=== PATIENT | male | born 1950 | race Hispanic/Latino ===

== ENCOUNTER 2017-09-05 14:38 | Emergency (ER) | payer MEDICARE ==
--- NOTE | 2017-09-05 14:50 | C.PDOC ---
History Of Present Illness 67 y/o male brought to ED by EMS after being found in an acute ETOH intoxication at [facility] prior to arrival. At ED patient is ambulatory and has steady gait. Patient has no physical complaints at this time. Time Seen by Provider: 09/05/17 14:43 History Per: Patient History/Exam Limitations: no limitations Onset/Duration Of Symptoms: Mins Suicide/Self Injury Attempted (Context): None Modifying Factor(s): Alcohol Past Medical History Reviewed: Historical Data, Nursing Documentation, Vital Signs Vital Signs: Last Vital Signs Temp 98.3 F 09/05/17 14:50 Pulse 84 09/05/17 16:03 Resp 18 09/05/17 16:03 BP 135/82 09/05/17 16:03 Pulse Ox 98 09/05/17 16:03 - Medical History PMH: No Chronic Diseases Surgical History: No Surg Hx Family History: States: No Known Family Hx Review Of Systems Constitutional: Negative for: Fever, Chills Cardiovascular: Negative for: Chest Pain Gastrointestinal: Negative for: Nausea, Vomiting, Abdominal Pain Skin: Negative for: Rash Psych: Negative for: Anxiety, Suicidal ideation Physical Exam - Physical Exam Appears: Non-toxic, No Acute Distress, Other (Cooperative, mild to moderate etoh intoxicated) Skin: Normal Color, Warm, Dry, No Rash Head: Atraumatic, Normacephalic Eye(s): bilateral: Normal Inspection Oral Mucosa: Moist Neck: Normal ROM, Supple Cardiovascular: Rhythm Regular Respiratory: Normal Breath Sounds, No Rales, No Rhonchi, No Wheezing Gastrointestinal/Abdominal: Soft, No Tenderness, No Guarding, No Rebound Extremity: Normal ROM, Capillary Refill (<2 seconds) Neurological/Psych: Oriented x3, Normal Speech Gait: Steady ED Course And Treatment O2 Sat by Pulse Oximetry: 100 (RA) Pulse Ox Interpretation: Normal Disposition - Disposition Disposition: HOME/ ROUTINE Disposition Time: 19:00 Condition: IMPROVED Forms: [facility] (Jamaican) - Clinical Impression Clinical Impression: Alcoholism /alcohol abuse - Scribe Statement The provider has reviewed the documentation as recorded by the Carmineibcarmelo Mckeon All medical record entries made by the Scribe were at my direction and personally dictated by me. I have reviewed the chart and agree that the record accurately reflects my personal performance of the history, physical exam, medical decision making, and the department course for this patient. I have also personally directed, reviewed, and agree with the discharge instructions and disposition.
[2017-09-05 14:55] VITALS: TEMP 98.3
[2017-09-05 16:04] VITALS: BP 135/82; PULSE 84; RESP 18
[2017-10-03 16:14] VITALS: O2SAT 100
== END 2017-09-05 16:10 | disposition home or self-care (01) ==
LOC: C.ER 14:38
DX: F10.20 Alcohol dependence, uncomplicated (principal); Y90.9 Presence of alcohol in blood, level not specified

== ENCOUNTER 2017-09-05 17:14 | Inpatient (IN) | payer MEDICARE ==
--- NOTE | 2017-09-05 18:05 | C.PDOC ---
History Of Present Illness 67 year old is brought to the ED via EMS after being found in the street drinking. Patient was seen in the ED earlier today by Dr. Valera who evaluated him and d/c at 16:00. Patient reports he left the hospital went to have a drink was sitting on the curb and was picked up by ambulance and brought back to the ED. Patient presents with a abrasion to the back of his head and states he does not remember how it happened. Patient denies SI/HI, hallucinations and any physical complaints. Time Seen by Provider: 09/05/17 17:27 Chief Complaint (Nursing): Substance Abuse History Per: Patient History/Exam Limitations: no limitations Onset/Duration Of Symptoms: Hrs Current Symptoms Are (Timing): Gone Suicide/Self Injury Attempted (Context): None Modifying Factor(s): Other (Heroin) Associated Symptoms: denies: Depression, Suicidal Thoughts, Suicidal Plan Involuntary Hold By: None Recent travel outside of the [place]: No Additional History Per: Patient Past Medical History Reviewed: Historical Data, Nursing Documentation, Vital Signs Vital Signs: Last Vital Signs Temp 98 F 09/05/17 23:13 Pulse 96 H 09/05/17 23:13 Resp 16 09/05/17 23:13 BP 120/76 09/05/17 23:13 Pulse Ox 98 09/05/17 23:13 - Medical History PMH: HTN Other PMH: Hepatocellular carcinoma Surgical History: No Surg Hx Other Surgeries: Liver Transplant Family History: States: Unknown Family Hx - Social History Hx Alcohol Use: Yes Hx Substance Use: No Review Of Systems Constitutional: Negative for: Fever, Chills Cardiovascular: Negative for: Chest Pain, Palpitations Respiratory: Negative for: Cough, Shortness of Breath Gastrointestinal: Negative for: Nausea, Vomiting, Abdominal Pain Skin: Negative for: Rash Neurological: Negative for: Weakness, Numbness Psych: Negative for: Depression, Suicidal ideation Physical Exam - Physical Exam Appears: Non-toxic, No Acute Distress, Other (Intoxicated, speaking in full sentences) Skin: Normal Color, Warm, Dry Head: Normacephalic, Abrasion (Occipital ) Nose: No Discharge Oral Mucosa: Moist Neck: Normal ROM, Supple Chest: Symmetrical Cardiovascular: Rhythm Regular, No Murmur Respiratory: Normal Breath Sounds, No Rales, No Rhonchi, No Wheezing Gastrointestinal/Abdominal: Soft, No Tenderness, No Distention, No Rebound Extremity: Normal ROM, No Pedal Edema, No Calf Tenderness, No Swelling Neurological/Psych: Oriented x3, Normal Speech, Normal Cognition Gait: Steady ED Course And Treatment - Laboratory Results Result Diagrams: 09/05/17 21:13 09/05/17 21:13 Lab Interpretation: Abnormal (ETOH 175) ECG: Interpreted By Me ECG Rhythm: Sinus Tachycardia (with Q waves V1-2), ST/T Changes (with possible inferior ischemia) ECG Interpretation: Abnormal O2 Sat by Pulse Oximetry: 97 (On RA) Pulse Ox Interpretation: Normal - CT Scan/US CT Head Other Rad Studies (CT/US): Interpreted By Me, Read By Radiologist, Radiology Report Reviewed CT/US Interpretation: EXAM: CT Head Without Intravenous Contrast. EXAM DATE/ TIME: 09/05/2017 6:08 PM. CLINICAL HISTORY: 67 years old, male; Injury or trauma; Fall; Initial encounter; Abrasion and concussion / head injury;. Consciousness not specified; Head, generalized. TECHNIQUE: Axial computed tomography images of the head/brain without intravenous contrast. All CT scans at. this facility use one or more dose reduction techniques, viz.: automated exposure control; ma/kV. adjustment per patient size (including targeted exams where dose is matched to indication; i.e. head);. or iterative reconstruction technique. Coronal and sagittal reformatted images were created and reviewed. COMPARISON: There are no prior studies for comparison. FINDINGS: Brain: There is dilatation of sulci gyri and ventricles. There is no midline shift. There is decreased. attenuation in periventricular white matter. There is extensive subarachnoid hemorrhage. There is a. very small right frontal subdural hemorrhage. There are no focal masses. There are no focal. hemorrhages. Elizondo- white differentiation is visualized. Ventricles: See above. Bones: Cranial vault is intact. Soft tissues: There is left posterior parietal scalp bruising. Sinuses: There is no acute sinusitis. Ears and mastoids: Left middle ear and mastoid are unremarkable. There is debris in the right. external auditory canal. There is partial opacification of right middle ear and mastoid. Orbits: Orbital contents are unremarkable. IMPRESSION: Extensive subarachnoid hemorrhage with very small right frontal subdural bleed;. atrophy and small vessel disease; left posterior parietal scalp bruising, no fracture; right middle ear. and mastoid disease. Reevaluation Time: 22:31 Reassessment Condition: Unchanged (Patient stable and c/o mild headache.) - Physician Consult Information Time Consulting Physician Contacted: 22:30 Outcome Of Conversation: Case discussed with Dr Anand and Dr Han, Dr Feldman and Dr Jackson. Patient to be admitted to the ICU for observation and CT angio of the head ordered. Disposition - Disposition Disposition: HOSPITALIZED Disposition Time: 22:32 Condition: SERIOUS - Clinical Impression Clinical Impression: Subarachnoid hemorrhage - Scribe Statement The provider has reviewed the documentation as recorded by the Scribe Antonio Jay All medical record entries made by the Scribe were at my direction and personally dictated by me. I have reviewed the chart and agree that the record accurately reflects my personal performance of the history, physical exam, medical decision making, and the department course for this patient. I have also personally directed, reviewed, and agree with the discharge instructions and disposition.
--- NOTE | 2017-09-05 20:52 | CT ---
EXAM: CT Head Without Intravenous Contrast EXAM DATE/TIME: 09/05/2017 6:08 PM CLINICAL HISTORY: 67 years old, male; Injury or trauma; Fall; Initial encounter; Abrasion and concussion / head injury; Consciousness not specified; Head, generalized TECHNIQUE: Axial computed tomography images of the head/brain without intravenous contrast. All CT scans at this facility use one or more dose reduction techniques, viz.: automated exposure control; ma/kV adjustment per patient size (including targeted exams where dose is matched to indication; i.e. head); or iterative reconstruction technique. Coronal and sagittal reformatted images were created and reviewed. COMPARISON: There are no prior studies for comparison. FINDINGS: Brain: There is dilatation of sulci gyri and ventricles. There is no midline shift. There is decreased attenuation in periventricular white matter. There is extensive subarachnoid hemorrhage. There is a very small right frontal subdural hemorrhage. There are no focal masses. There are no focal hemorrhages. Elizondo-white differentiation is visualized. Ventricles: See above Bones: Cranial vault is intact. Soft tissues: There is left posterior parietal scalp bruising Sinuses: There is no acute sinusitis. Ears and mastoids: Left middle ear and mastoid are unremarkable. There is debris in the right external auditory canal. There is partial opacification of right middle ear and mastoid. Orbits: Orbital contents are unremarkable. IMPRESSION: Extensive subarachnoid hemorrhage with very small right frontal subdural bleed; atrophy and small vessel disease; left posterior parietal scalp bruising, no fracture; right middle ear and mastoid disease
[2017-09-05 21:17] LABS: BASO # 0.1 K/uL (0.0-0.2); BASO % 0.7 % (0.0-2.0); EOS % 0.4 % (0.0-4.0); HEMATOCRIT 43.8 % (35.0-51.0); LYMPH # 1.2 K/uL (1.0-4.3); LYMPH % 12.4 % (20.0-40.0); MEAN CELL VOLUME 98.2 fL (80.0-94.0); MEAN CORPUSCULAR HEMOGLOBIN 33.4 pg (27.0-31.0); MEAN PLATELET VOLUME 7.8 fL (7.2-11.7); MONO # 0.6 K/uL (0.0-0.8); RED CELL DISTRIBUTION WIDTH 12.6 % (11.5-14.5); WHITE BLOOD COUNT 9.3 K/uL (4.8-10.8)
[2017-09-05 21:29] LABS: ALB/GLOB RATIO 1.3 (1.0-2.1); ALCOHOL SERUM 175 mg/dl (0-10); ALKALINE PHOSPHATASE 74 U/L (38-126); ALT/SGPT 50 U/L (21-72); AST/SGOT 33 U/L (17-59); BILIRUBIN,TOTAL 0.6 mg/dL (0.2-1.3); BLOOD UREA NITROGEN 16 mg/dL (9-20); CALCIUM 8.6 mg/dl (8.6-10.4); CARBON DIOXIDE 25 mmol/L (22-30); CHLORIDE 101 mmol/L (98-107); GFR AFRICAN-AMERICAN > 60; GLUCOSE,RANDOM 151 mg/dL (75-110); POTASSIUM 3.7 mmol/L (3.6-5.2); SODIUM 139 mmol/L (132-148); TOTAL PROTEIN 7.2 g/dL (6.3-8.3)
[2017-09-05] MEDS ORDERED: Fosphenytoin 1,000 MG in Sodium Chloride 0.9% 50 ML IV STA (22:01)
[2017-09-05] MEDS ORDERED: Labetalol 25mg/5ml Syringe IVP STA (22:01)
[2017-09-05] MEDS ORDERED: Labetalol 25mg/5ml Syringe ONE (22:13)
[2017-09-05] MEDS ORDERED: Iodixanol 320 MG/ML 100 ML BOTTLE IV ONE (23:09)
--- NOTE | 2017-09-05 23:18 | CP.PCM.HP ---
History of Present Illness - History of Present Illness History of Present Illness: Chief complaint: Patient was brought in by the ambulance, he was found on the side of the curb by the bystander. History: 67-year-old male with a history of hypertension diabetes and high cholesterol. Patient has a history of liver transplant. Earlier today the patient was found in the street drinking, and EMS brought him to the emergency room. In the emergency room patient was evaluated initially, and he was discharged. Again he went to bar and he was drinking alcohol, he does not remember anything after that, he was found not responding underside of the curb and he was brought into the emergency room. Slowly his started responding, his alcohol level was found to be high, and he was able to be get discharged. At the time emergency room doctor noted that he had some bleeding in the back of the head, and urgent CAT scan of the brain was done, showing evidence of bleeding, and he needed hospitalization. When I examined the patient he was more alert and awake, he denied any headache , no nausea or vomiting, no fall or injury, he doesn't remember anything. Currently he is able to stand up, but he has unsteady gait. He denies any visual symptoms. Currently he is not taking any antiplatelets. Past medical history: Hypertension, diabetes, high cholesterol, history of liver transplant Allergies: No known drug allergies Personal history: Patient was not drinking for sometime, he again he started. He also smokes daily. No drugs Surgical history liver transplant in 2005 Family history noncontributory Review of system: Currently patient does have a corresponding, no headache, denies any nausea or vomiting, no chest pain or shortness of breath, denies any GI symptoms Some bleeding in the back of the head noted Unsteady gait noted Vital signs reviewed No neck vein distention noted Chest good air entry bilaterally, no wheezing or rales noted CVS regular heart sound, no murmur noted Abdomen soft, nontender. Extremities no pedal edema [employer] alert awake oriented -3, no functional neurological deficit Patient's labs reviewed in Nonspecific the CT of the head without contrast showing evidence of subarachnoid hemorrhage. CT of the head with contrast showing no evidence of aneurysm Assessment and recommendation: 67-year-old male with a history of diabetes, hypertension, hypercholesterolemia , history of liver transplant. Most likely now admitted with subarachnoid hemorrhages secondary to most likely traumatic. Alcoholism. Glucose monitoring neurological status. Neurologic, neurosurgical evaluation. Spoke to the neurologist. Progressive mitral Present on Admission - Present on Admission Any Indicators Present on Admission: No History of DVT/PE: No History of Uncontrolled Diabetes: No Urinary Catheter: No Decubitus Ulcer Present: No Past Patient History - Past Social History Smoking Status: Former Smoker - CARDIAC Hx Hypertension: Yes - ENDOCRINE/METABOLIC Hx Diabetes Mellitus Type 2: Yes - PSYCHIATRIC Hx Substance Use: No - SURGICAL HISTORY Hx Liver Transplant: Yes (2005) Meds Allergies/Adverse Reactions: Allergies Allergy/AdvReac Type Severity Reaction Status Date / Time No Known Allergies Allergy Verified 09/05/17 14:55 Results - Vital Signs Recent Vital Signs: Last Vital Signs Temp 98 F 09/05/17 23:13 Pulse 96 H 09/05/17 23:13 Resp 16 09/05/17 23:13 BP 120/76 09/05/17 23:13 Pulse Ox 98 09/05/17 23:13 - Labs Result Diagrams: 09/06/17 06:16 09/06/17 06:16 Labs: Laboratory Results - last 24 hr 09/05/17 09/05/17 09/05/17 17:39 21:13 21:13 WBC 9.3 RBC 4.46 Hgb 14.9 Hct 43.8 MCV 98.2 H MCH 33.4 H MCHC 34.0 RDW 12.6 Plt Count 190 MPV 7.8 Neut % (Auto) 80.5 H Lymph % (Auto) 12.4 L [place] % (Auto) 6.0 Eos % (Auto) 0.4 Baso % (Auto) 0.7 Neut # 7.5 H Lymph # 1.2 [place] # 0.6 Eos # 0.0 Baso # 0.1 PT 11.1 INR 1.0 APTT 27 Sodium Potassium Chloride Carbon Dioxide Anion Gap BUN Creatinine Est GFR ( Amer) Est GFR (Non-Af Amer) POC Glucose (mg/dL) 139 H Random Glucose Calcium Total Bilirubin AST ALT Alkaline Phosphatase Total Protein Albumin Globulin Albumin/Globulin Ratio Urine Opiates Screen Urine Methadone Screen Ur Barbiturates Screen Ur Phencyclidine Scrn Ur Amphetamines Screen U Benzodiazepines Scrn U Oth Cocaine Metabols U Cannabinoids Screen Alcohol, Quantitative Blood Type Antibody Screen 09/05/17 09/05/17 09/05/17 21:13 21:22 21:22 WBC RBC Hgb Hct MCV MCH MCHC RDW Plt Count MPV Neut % (Auto) Lymph % (Auto) [place] % (Auto) Eos % (Auto) Baso % (Auto) Neut # Lymph # [place] # Eos # Baso # PT INR APTT Sodium 139 Potassium 3.7 Chloride 101 Carbon Dioxide 25 Anion Gap 17 BUN 16 Creatinine 0.9 Est GFR ( Amer) > 60 Est GFR (Non-Af Amer) > 60 POC Glucose (mg/dL) Random Glucose 151 H Calcium 8.6 Total Bilirubin 0.6 AST 33 ALT 50 Alkaline Phosphatase 74 Total Protein 7.2 Albumin 4.0 Globulin 3.1 Albumin/Globulin Ratio 1.3 Urine Opiates Screen Negative Urine Methadone Screen Negative Ur Barbiturates Screen Negative Ur Phencyclidine Scrn Negative Ur Amphetamines Screen Negative U Benzodiazepines Scrn Negative U Oth Cocaine Metabols Negative U Cannabinoids Screen Negative Alcohol, Quantitative 175 H Blood Type O POSITIVE Antibody Screen Negative
--- NOTE | 2017-09-06 00:36 | CT ---
EXAM: CT Angiography Head With Intravenous Contrast EXAM DATE/TIME: 09/05/2017 10:33 PM CLINICAL HISTORY: 67 years old, male; Signs and symptoms; Other: R/O bleed; Patient HX: 09-05-17; Additional info: Subarachnoid hemorrhage TECHNIQUE: Axial computed tomographic angiography images of the head with intravenous contrast using CT angiography protocol. All CT scans at this facility use one or more dose reduction techniques, viz.: automated exposure control; ma/kV adjustment per patient size (including targeted exams where dose is matched to indication; i.e. head); or iterative reconstruction technique. MIP reconstructed images were created and reviewed. Coronal and sagittal reformatted images were created and reviewed. CONTRAST: 100 mL of [id number] administered intravenously. COMPARISON: CT - HEAD W/O CONTRAST 2017-09-05 19:03 FINDINGS: Noncontrast CT performed earlier the same day revealed extensive subarachnoid hemorrhage most notably in the suprasellar cistern as well as possible trace amount of right frontal subdural blood. Small calcifications are present within the cavernous carotid arteries bilaterally without significant stenosis or occlusion. The visualized portions of the vertebral arteries are normal bilaterally. The basilar artery is normal. The anterior, middle, posterior cerebral arteries are patent. The [place] of [place] is normal without evidence of anerysm. Atrophy and chronic small vessel ischemic disease. Please note no 3-D reconstructions are provided. IMPRESSION: No acute findings.
[2017-09-06] MEDS ORDERED: Fosphenytoin 100 MG in Dextrose 5% In Water 50 ML IV SCH (04:00)
[2017-09-06] MEDS: Fosphenytoin 100 mg/2 ml Inj IV SCH ×3 (04:35→21:47)
[2017-09-06 06:21] LABS: BASO % 0.5 % (0.0-2.0); EOS % 0.1 % (0.0-4.0); HEMATOCRIT 39.3 % (35.0-51.0); LYMPH # 0.9 K/uL (1.0-4.3); LYMPH % 10.9 % (20.0-40.0); MEAN CELL VOLUME 97.5 fL (80.0-94.0); MEAN CORPUSCULAR HEMOGLOBIN 33.1 pg (27.0-31.0); MEAN PLATELET VOLUME 8.6 fL (7.2-11.7); MONO # 0.7 K/uL (0.0-0.8); MONO % 8.8 % (0.0-10.0); NRBC % 0.1 % (0.0-2.0); RED CELL DISTRIBUTION WIDTH 12.5 % (11.5-14.5); WHITE BLOOD COUNT 8.4 K/uL (4.8-10.8)
[2017-09-06 06:41] LABS: ALB/GLOB RATIO 1.4 (1.0-2.1); ALKALINE PHOSPHATASE 69 U/L (38-126); ALT/SGPT 45 U/L (21-72); AST/SGOT 28 U/L (17-59); BLOOD UREA NITROGEN 19 mg/dL (9-20); CALCIUM 8.4 mg/dl (8.6-10.4); CARBON DIOXIDE 22 mmol/L (22-30); CHLORIDE 100 mmol/L (98-107); GFR AFRICAN-AMERICAN > 60; GLUCOSE,RANDOM 175 mg/dL (75-110); MAGNESIUM 1.1 mg/dL (1.6-2.3); POTASSIUM 3.5 mmol/L (3.6-5.2); SODIUM 137 mmol/L (132-148); TOTAL PROTEIN 6.6 g/dL (6.3-8.3)
--- NOTE | 2017-09-06 07:08 | CP.PCM.CON ---
History of Present Illness - History of Present Illness History of Present Illness: Chief complaint: Patient was brought in by the ambulance, he was found on the side of the curb by the bystander. History: 67-year-old male with a history of hypertension diabetes and high cholesterol. Patient has a history of liver transplant. Earlier today the patient was found in the street drinking, and EMS brought him to the emergency room. In the emergency room patient was evaluated initially, and he was discharged. Again he went to bar and he was drinking alcohol, he does not remember anything after that, he was found not responding underside of the curb and he was brought into the emergency room. Slowly his started responding, his alcohol level was found to be high, and he was able to be get discharged. At the time emergency room doctor noted that he had some bleeding in the back of the head, and urgent CAT scan of the brain was done, showing evidence of bleeding, and he needed hospitalization. When I examined the patient he was more alert and awake, he denied any headache , no nausea or vomiting, no fall or injury, he doesn't remember anything. Currently he is able to stand up, but he has unsteady gait. He denies any visual symptoms. Currently he is not taking any antiplatelets. Past medical history: Hypertension, diabetes, high cholesterol, history of liver transplant Allergies: No known drug allergies Personal history: Patient was not drinking for sometime, he again he started. He also smokes daily. No drugs Surgical history liver transplant in 2005 Family history noncontributory Review of system: Currently patient does have a corresponding, no headache, denies any nausea or vomiting, no chest pain or shortness of breath, denies any GI symptoms Some bleeding in the back of the head noted Unsteady gait noted Vital signs reviewed No neck vein distention noted Chest good air entry bilaterally, no wheezing or rales noted CVS regular heart sound, no murmur noted Abdomen soft, nontender. Extremities no pedal edema [employer] alert awake oriented -3, no functional neurological deficit Patient's labs reviewed in Nonspecific the CT of the head without contrast showing evidence of subarachnoid hemorrhage. CT of the head with contrast showing no evidence of aneurysm Assessment and recommendation: 67-year-old male with a history of diabetes, hypertension, hypercholesterolemia , history of liver transplant. Most likely now admitted with subarachnoid hemorrhages secondary to most likely traumatic. Alcoholism. Glucose monitoring neurological status. Neurologic, neurosurgical evaluation. Spoke to the neurologist. Progressive mitral Past Patient History - Past Medical History & Family History Past Medical History?: Yes - Past Social History Smoking Status: Former Smoker - CARDIAC Hx Hypertension: Yes - PULMONARY Hx Respiratory Disorders: No Hx Asthma: No Hx Bronchitis: No Hx Chronic Obstructive Pulmonary Disease (COPD): No Hx Emphysema: No Hx Lung Cancer: No Hx Pneumonia: No Hx Pulmonary Edema: No Hx Pulmonary Embolism: No Hx Respiratory Aspiration: No Hx Respiratory Tract Infection: No Hx Sleep Apnea: No Hx Tuberculosis: No - NEUROLOGICAL Hx Neurological Disorder: Yes Hx Alzheimer's Disease: No HX Cerebrovascular Accident: No Hx Dementia: No Hx Dizziness: No Hx Meningitis: No Hx Migraine: No Hx Multiple Sclerosis: No Hx Paralysis: No Hx Parkinson's Disease: No Hx Seizures: No Hx Syncope: No Hx Transient Ischemic Attacks (TIA): No Hx Vertigo: No - HEENT Hx HEENT Problems: No Hx Blind: No Hx Cataracts: No Hx Deafness: No Hx Difficulty Chewing: No Hx Epistaxis: No Hx Glaucoma: No Hx Macular Degeneration: No Hx Sinusitis: No - RENAL Hx Chronic Kidney Disease: No Hx Dialysis: No Hx Neurogenic Bladder: No Hx Pyelonephritis: No Hx Renal (Kidney) Cancer: No Hx Renal Failure: No - ENDOCRINE/METABOLIC Hx Diabetes Mellitus Type 2: Yes - HEMATOLOGICAL/ONCOLOGICAL Hx Blood Disorders: No Hx Shingles: Yes - INTEGUMENTARY Hx Dermatological Problems: No - MUSCULOSKELETAL/RHEUMATOLOGICAL Hx Musculoskeletal Disorders: Yes Hx Falls: Yes - GASTROINTESTINAL Hx Gastrointestinal Disorders: Yes Hx Liver Failure: Yes - GENITOURINARY/GYNECOLOGICAL Hx Genitourinary Disorders: No - PSYCHIATRIC Hx Substance Use: No - SURGICAL HISTORY Hx Liver Transplant: Yes (2005) - ANESTHESIA Hx Anesthesia: Yes Hx Anesthesia Reactions: No Hx Malignant Hyperthermia: No Has any member of the family had a problem w/ anesthesia?: No Meds Allergies/Adverse Reactions: Allergies Allergy/AdvReac Type Severity Reaction Status Date / Time No Known Allergies Allergy Verified 09/05/17 14:55 - Medications Medications: Current Medications Fosphenytoin Sodium (Cerebyx) 100 mg IV Q8H [facility] Last Admin: 09/06/17 04:35 Dose: 100 mg Sodium Chloride (Sodium Chloride 0.9%) 1,000 mls @ 100 mls/hr IV .Q10H [facility] Metformin HCl (Glucophage) 500 mg PO BID [facility] Metoprolol Succinate (Toprol Xl) 50 mg PO BID [facility] Multivitamins (Hexavitamin) 1 tab PO DAILY [facility] Pantoprazole Sodium (Protonix Ec Tab) 40 mg PO DAILY [facility] Rosuvastatin Calcium (Crestor) 2.5 mg PO HS PRICE Sitagliptin Phosphate (Januvia) 100 mg PO DAILY [facility] Tacrolimus (Prograf Cap) 1 mg PO DAILY [facility] Thiamine HCl (Vitamin B1 Tab) 100 mg PO DAILY [facility] Results - Vital Signs Recent Vital Signs: Last Vital Signs Temp 98.1 F 09/06/17 04:00 Pulse 83 09/06/17 01:46 Resp 14 09/06/17 01:46 BP 91/48 L 09/06/17 01:46 Pulse Ox 95 09/06/17 01:46 - Labs Result Diagrams: 09/06/17 06:16 09/06/17 06:16 Labs: Laboratory Results - last 24 hr 09/05/17 09/05/17 09/05/17 17:39 21:13 21:13 WBC 9.3 RBC 4.46 Hgb 14.9 Hct 43.8 MCV 98.2 H MCH 33.4 H MCHC 34.0 RDW 12.6 Plt Count 190 MPV 7.8 Neut % (Auto) 80.5 H Lymph % (Auto) 12.4 L [place] % (Auto) 6.0 Eos % (Auto) 0.4 Baso % (Auto) 0.7 Neut # 7.5 H Lymph # 1.2 [place] # 0.6 Eos # 0.0 Baso # 0.1 PT 11.1 INR 1.0 APTT 27 Sodium Potassium Chloride Carbon Dioxide Anion Gap BUN Creatinine Est GFR ( Amer) Est GFR (Non-Af Amer) POC Glucose (mg/dL) 139 H Random Glucose Calcium Magnesium Total Bilirubin AST ALT Alkaline Phosphatase Total Protein Albumin Globulin Albumin/Globulin Ratio Urine Opiates Screen Urine Methadone Screen Ur Barbiturates Screen Ur Phencyclidine Scrn Ur Amphetamines Screen U Benzodiazepines Scrn U Oth Cocaine Metabols U Cannabinoids Screen Alcohol, Quantitative Blood Type Antibody Screen 09/05/17 09/05/17 09/05/17 21:13 21:22 21:22 WBC RBC Hgb Hct MCV MCH MCHC RDW Plt Count MPV Neut % (Auto) Lymph % (Auto) [place] % (Auto) Eos % (Auto) Baso % (Auto) Neut # Lymph # [place] # Eos # Baso # PT INR APTT Sodium 139 Potassium 3.7 Chloride 101 Carbon Dioxide 25 Anion Gap 17 BUN 16 Creatinine 0.9 Est GFR ( Amer) > 60 Est GFR (Non-Af Amer) > 60 POC Glucose (mg/dL) Random Glucose 151 H Calcium 8.6 Magnesium Total Bilirubin 0.6 AST 33 ALT 50 Alkaline Phosphatase 74 Total Protein 7.2 Albumin 4.0 Globulin 3.1 Albumin/Globulin Ratio 1.3 Urine Opiates Screen Negative Urine Methadone Screen Negative Ur Barbiturates Screen Negative Ur Phencyclidine Scrn Negative Ur Amphetamines Screen Negative U Benzodiazepines Scrn Negative U Oth Cocaine Metabols Negative U Cannabinoids Screen Negative Alcohol, Quantitative 175 H Blood Type O POSITIVE Antibody Screen Negative 09/06/17 09/06/17 09/06/17 06:16 06:16 06:16 WBC 8.4 RBC 4.03 L Hgb 13.4 Hct 39.3 MCV 97.5 H MCH 33.1 H MCHC 34.0 RDW 12.5 Plt Count 156 MPV 8.6 Neut % (Auto) 79.7 H Lymph % (Auto) 10.9 L [place] % (Auto) 8.8 Eos % (Auto) 0.1 Baso % (Auto) 0.5 Neut # 6.7 Lymph # 0.9 L [place] # 0.7 Eos # 0.0 Baso # 0.0 PT 11.6 INR 1.0 APTT 19 L D Sodium 137 Potassium 3.5 L Chloride 100 Carbon Dioxide 22 Anion Gap 18 BUN 19 Creatinine 1.1 Est GFR ( Amer) > 60 Est GFR (Non-Af Amer) > 60 POC Glucose (mg/dL) Random Glucose 175 H Calcium 8.4 L Magnesium 1.1 L Total Bilirubin 1.0 AST 28 ALT 45 Alkaline Phosphatase 69 Total Protein 6.6 Albumin 3.8 Globulin 2.8 Albumin/Globulin Ratio 1.4 Urine Opiates Screen Urine Methadone Screen Ur Barbiturates Screen Ur Phencyclidine Scrn Ur Amphetamines Screen U Benzodiazepines Scrn U Oth Cocaine Metabols U Cannabinoids Screen Alcohol, Quantitative Blood Type Antibody Screen
--- NOTE | 2017-09-06 07:36 | CP.PCM.CON ---
History of Present Illness - History of Present Illness History of Present Illness: CONSULT DICTATED POST TRAUMATIC SAH NO ANEURYSM PER CTA ASYMPTOMATIC HYDRATION KEEP MAP >90-100 HEAD END ELEVATION GI FOLLOW UP CEREBEX Sz PROPYLAXIS MRI EEG NO NEUROSURGICAL INTERVENTION IS NEEDED NIMODIPINE D/C DUE TO HIS LOW MAP AND POST TRAUMATIC SAH Past Patient History - Past Medical History & Family History Past Medical History?: Yes - Past Social History Smoking Status: Former Smoker - CARDIAC Hx Hypertension: Yes - PULMONARY Hx Respiratory Disorders: No Hx Asthma: No Hx Bronchitis: No Hx Chronic Obstructive Pulmonary Disease (COPD): No Hx Emphysema: No Hx Lung Cancer: No Hx Pneumonia: No Hx Pulmonary Edema: No Hx Pulmonary Embolism: No Hx Respiratory Aspiration: No Hx Respiratory Tract Infection: No Hx Sleep Apnea: No Hx Tuberculosis: No - NEUROLOGICAL Hx Neurological Disorder: Yes Hx Alzheimer's Disease: No HX Cerebrovascular Accident: No Hx Dementia: No Hx Dizziness: No Hx Meningitis: No Hx Migraine: No Hx Multiple Sclerosis: No Hx Paralysis: No Hx Parkinson's Disease: No Hx Seizures: No Hx Syncope: No Hx Transient Ischemic Attacks (TIA): No Hx Vertigo: No - HEENT Hx HEENT Problems: No Hx Blind: No Hx Cataracts: No Hx Deafness: No Hx Difficulty Chewing: No Hx Epistaxis: No Hx Glaucoma: No Hx Macular Degeneration: No Hx Sinusitis: No - RENAL Hx Chronic Kidney Disease: No Hx Dialysis: No Hx Neurogenic Bladder: No Hx Pyelonephritis: No Hx Renal (Kidney) Cancer: No Hx Renal Failure: No - ENDOCRINE/METABOLIC Hx Diabetes Mellitus Type 2: Yes - HEMATOLOGICAL/ONCOLOGICAL Hx Blood Disorders: No Hx Shingles: Yes - INTEGUMENTARY Hx Dermatological Problems: No - MUSCULOSKELETAL/RHEUMATOLOGICAL Hx Musculoskeletal Disorders: Yes Hx Falls: Yes - GASTROINTESTINAL Hx Gastrointestinal Disorders: Yes Hx Liver Failure: Yes - GENITOURINARY/GYNECOLOGICAL Hx Genitourinary Disorders: No - PSYCHIATRIC Hx Substance Use: No - SURGICAL HISTORY Hx Liver Transplant: Yes (2005) - ANESTHESIA Hx Anesthesia: Yes Hx Anesthesia Reactions: No Hx Malignant Hyperthermia: No Has any member of the family had a problem w/ anesthesia?: No Meds Allergies/Adverse Reactions: Allergies Allergy/AdvReac Type Severity Reaction Status Date / Time No Known Allergies Allergy Verified 09/05/17 14:55 - Medications Medications: Current Medications Fosphenytoin Sodium (Cerebyx) 100 mg IV Q8H [facility] Last Admin: 09/06/17 04:35 Dose: 100 mg Sodium Chloride (Sodium Chloride 0.9%) 1,000 mls @ 100 mls/hr IV .Q10H [facility] Metformin HCl (Glucophage) 500 mg PO BID [facility] Metoprolol Succinate (Toprol Xl) 50 mg PO BID [facility] Multivitamins (Hexavitamin) 1 tab PO DAILY [facility] Pantoprazole Sodium (Protonix Ec Tab) 40 mg PO DAILY [facility] Rosuvastatin Calcium (Crestor) 2.5 mg PO HS [facility] Sitagliptin Phosphate (Januvia) 100 mg PO DAILY [facility] Tacrolimus (Prograf Cap) 1 mg PO DAILY [facility] Thiamine HCl (Vitamin B1 Tab) 100 mg PO DAILY [facility] Results - Vital Signs Recent Vital Signs: Last Vital Signs Temp 98.1 F 09/06/17 04:00 Pulse 83 09/06/17 01:46 Resp 14 09/06/17 01:46 BP 91/48 L 09/06/17 01:46 Pulse Ox 95 09/06/17 01:46 - Labs Result Diagrams: 09/06/17 06:16 09/06/17 06:16 Labs: Laboratory Results - last 24 hr 09/05/17 09/05/17 09/05/17 17:39 21:13 21:13 WBC 9.3 RBC 4.46 Hgb 14.9 Hct 43.8 MCV 98.2 H MCH 33.4 H MCHC 34.0 RDW 12.6 Plt Count 190 MPV 7.8 Neut % (Auto) 80.5 H Lymph % (Auto) 12.4 L [place] % (Auto) 6.0 Eos % (Auto) 0.4 Baso % (Auto) 0.7 Neut # 7.5 H Lymph # 1.2 [place] # 0.6 Eos # 0.0 Baso # 0.1 PT 11.1 INR 1.0 APTT 27 Sodium Potassium Chloride Carbon Dioxide Anion Gap BUN Creatinine Est GFR ( Amer) Est GFR (Non-Af Amer) POC Glucose (mg/dL) 139 H Random Glucose Calcium Magnesium Total Bilirubin AST ALT Alkaline Phosphatase Total Protein Albumin Globulin Albumin/Globulin Ratio Urine Opiates Screen Urine Methadone Screen Ur Barbiturates Screen Ur Phencyclidine Scrn Ur Amphetamines Screen U Benzodiazepines Scrn U Oth Cocaine Metabols U Cannabinoids Screen Alcohol, Quantitative Blood Type Antibody Screen 09/05/17 09/05/17 09/05/17 21:13 21:22 21:22 WBC RBC Hgb Hct MCV MCH MCHC RDW Plt Count MPV Neut % (Auto) Lymph % (Auto) [place] % (Auto) Eos % (Auto) Baso % (Auto) Neut # Lymph # [place] # Eos # Baso # PT INR APTT Sodium 139 Potassium 3.7 Chloride 101 Carbon Dioxide 25 Anion Gap 17 BUN 16 Creatinine 0.9 Est GFR ( Amer) > 60 Est GFR (Non-Af Amer) > 60 POC Glucose (mg/dL) Random Glucose 151 H Calcium 8.6 Magnesium Total Bilirubin 0.6 AST 33 ALT 50 Alkaline Phosphatase 74 Total Protein 7.2 Albumin 4.0 Globulin 3.1 Albumin/Globulin Ratio 1.3 Urine Opiates Screen Negative Urine Methadone Screen Negative Ur Barbiturates Screen Negative Ur Phencyclidine Scrn Negative Ur Amphetamines Screen Negative U Benzodiazepines Scrn Negative U Oth Cocaine Metabols Negative U Cannabinoids Screen Negative Alcohol, Quantitative 175 H Blood Type O POSITIVE Antibody Screen Negative 09/06/17 09/06/17 09/06/17 06:16 06:16 06:16 WBC 8.4 RBC 4.03 L Hgb 13.4 Hct 39.3 MCV 97.5 H MCH 33.1 H MCHC 34.0 RDW 12.5 Plt Count 156 MPV 8.6 Neut % (Auto) 79.7 H Lymph % (Auto) 10.9 L [place] % (Auto) 8.8 Eos % (Auto) 0.1 Baso % (Auto) 0.5 Neut # 6.7 Lymph # 0.9 L [place] # 0.7 Eos # 0.0 Baso # 0.0 PT 11.6 INR 1.0 APTT 19 L D Sodium 137 Potassium 3.5 L Chloride 100 Carbon Dioxide 22 Anion Gap 18 BUN 19 Creatinine 1.1 Est GFR ( Amer) > 60 Est GFR (Non-Af Amer) > 60 POC Glucose (mg/dL) Random Glucose 175 H Calcium 8.4 L Magnesium 1.1 L Total Bilirubin 1.0 AST 28 ALT 45 Alkaline Phosphatase 69 Total Protein 6.6 Albumin 3.8 Globulin 2.8 Albumin/Globulin Ratio 1.4 Urine Opiates Screen Urine Methadone Screen Ur Barbiturates Screen Ur Phencyclidine Scrn Ur Amphetamines Screen U Benzodiazepines Scrn U Oth Cocaine Metabols U Cannabinoids Screen Alcohol, Quantitative Blood Type Antibody Screen
--- NOTE | 2017-09-06 08:01 | CON ---
DATE: 09/06/2017 TIME OF EVALUATION: 06:10 a.m. REASON FOR THE CONSULTATION: Head trauma with abnormal CAT scan. CHIEF COMPLAINT: The patient was brought in to [facility] by ambulance with a history of fall in the street and unconsciousness. From neurological point of view, I was called in to evaluate him to further management. HISTORY OF PRESENT ILLNESS: Mr. Donavon Rivera is a 67-year-old right-handed male who came to the emergency room earlier yesterday evening and he was discharged around 04:00. Then, he went there. He did have a drink of vodka. Next thing he realized he fell and hit his head on the street. He could not recall how these things happened and he was brought in to the [facility] for further evaluation. At present, he could not recall why he did come to the emergency room in first place. He do admit he drank vodka. He fell and hit his head. At present, mild headache over the occipital region. No visual or bulbar dysfunction. No neck pain. He has no focal weakness. No involuntary movements. The patient seems to be asymptomatic. PAST MEDICAL HISTORY: History of liver disease, been transplanted in the past, been followed by hand rug braider. The patient also had history of significant diabetes mellitus. Hepatocellular carcinoma, status post liver transplant. PERSONAL HISTORY: He smokes less than a pack a day and he drinks whenever his mood is out. No history of drug abuse. REVIEW OF SYSTEMS: A 12-point systems had been reviewed. From neuro, head trauma with abnormal CAT scan. MEDICATION: Rosuvastatin, metformin, multivitamin, Januvia, Prograf, Protonix and nimodipine with Cerebyx. PHYSICAL EXAMINATION: VITAL SIGNS: Blood pressure 91/48, mean arterial pressure of 58, respiratory rate 16, temperature 98.1, pulse 88. NECK: Supple. No rigidity. No meningismus. HEART: Sounds are regular, but tachycardia. EXTREMITIES: No edema in legs. NEUROLOGICAL: Mental status examination: He is awake, alert, oriented to person, place and time. Speech is clear. Naming, repetition, fluency, comprehension all within normal. Cranial nerve examination: Visual field intact. Pupils reactive to light. Extraocular movement normal. No nystagmus. No facial sensory deficit. No facial asymmetry. Hearing is normal. Tongue is midline. Good gag. Motor examination: On outstretched hand with eyes closed, no drift noted. Mild sensory tremor noted. Deep tendon reflexes, biceps, brachialis, triceps absent. Plantars are downgoing. Coordination: [id number] dysmetria seen in both upper extremities. Gait is deferred at this time. WORKUP: WBC 8.4, hemoglobin 13.4, hematocrit 39.3, platelet 156. PT 11.6, INR 1.0, PTT 19. Sodium 137, potassium 3.5, chloride 100, bicarbonate 22, BUN 19, creatinine 1.1, GFR more than 60, random glucose 175, calcium 8.4, magnesium 1.1, blood alcohol level 175. CT of the head: Significant diffuse subarachnoid hemorrhage with subdural hematoma over right frontoparietal region. Soft tissue swelling also noted over the occipital region. EKG, sinus tachycardia. CONCLUSION: Mr. Donavon Rivera presenting with following, 1. Status post traumatic subarachnoid hemorrhage in 2 compartments. 2. Significant bilateral distal symmetric sensorimotor neuropathy. 3. Substance abuse (alcohol). RECOMMENDATION: 1. IV hydration to improve his mean arterial pressure close to 90 to 100. 2. Nimodipine is no role because of posttraumatic subarachnoid hemorrhage. Moreover, his blood pressure is too low. 3. Please keep the head at elevation. 4. Agree with fosphenytoin seizure prophylaxis. We will follow him closely. If any liver enzymes are high at that time, we would discontinue and all workup is negative, maybe we would like to switch him to Keppra, least toxic to liver. 5. B1 vitamin. 6. Keep him DVT prophylaxis and seizure precaution. 7. MRI of the brain/EEG should be done. No neurosurgery consult is needed at present. The patient's condition had been extensively discussed with him as well as lead ramp service man. The patient will be followed closely with you. aGvino Feldman MD
--- NOTE | 2017-09-06 08:34 | RAD ---
Chest x-ray single frontal view History: Pneumonia. Comparison: 09/06/2017 Findings: Right hilar prominence. Mild venous congestion. Biapical pleural thickening. Patchy increased markings at the right lung base likely represent confluence of shadows of ribs and vessels. Enlarged ectatic aorta. Calcification at the aortic knob. Cardiomegaly. Degenerative changes spine and shoulders. Impression: Right hilar prominence. Mild venous congestion. Biapical pleural thickening. Patchy increased markings at the right lung base likely represent confluence of shadows of ribs and vessels. Enlarged ectatic aorta. Calcification at the aortic knob. Cardiomegaly.
[2017-09-06] MEDS ORDERED: Metoprolol Succinate 50 mg XL Tab PO SCH (10:00)
[2017-09-06] MEDS: Pantoprazole 40 mg EC Tab PO SCH (10:21)
[2017-09-06] MEDS: Multiple Vitamins Tab PO SCH (10:21)
[2017-09-06] MEDS ORDERED: Multivitamin (MVI) 10 ML, Thiamine 100 MG, Folic Acid 1 MG in Sodium Chloride 0.9% 1,00... IV ONE (10:30)
--- NOTE | 2017-09-06 12:18 | CARD ---
APPROVED REPORT EKG Measurement Heart [id number] <Conclusion> Sinus tachycardia Septal infarct, age undetermined ST & T wave abnormality, consider inferior ischemia Abnormal ECG
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
--- NOTE | 2017-09-06 15:53 | RAD ---
HISTORY: s/p liver transplant, need to r/o clips to get MRI COMPARISON: No prior. FINDINGS: BOWEL: Left stool retention. . No obstruction. No free air. No metallic clips noted Probable left renal calculi the largest calculus cluster -lower pole up to 5 mm BONES: Lumbar spondylosis OTHER FINDINGS: None. IMPRESSION: No abdominal internal suspect metallic densities Incidentally noted are probably benign left renal calculi
[2017-09-06] MEDS: (Novolin R) Insulin Human Regular 100 units/ml vial SC SCH ×2 (17:35→22:00)
[2017-09-06] MEDS: Sodium Chloride 0.9% 1,000 ML IV SCH ×2 (18:30→21:49)
[2017-09-06] MEDS: Rosuvastatin Calcium 2.5 mg Tab PO SCH (21:47)
[2017-09-07] MEDS: Sodium Chloride 0.9% 1,000 ML IV SCH ×3 (02:16→18:21)
[2017-09-07] MEDS: Fosphenytoin 100 mg/2 ml Inj IV SCH (03:11)
[2017-09-07 06:38] LABS: BASO % 0.7 % (0.0-2.0); EOS # 0.1 K/uL (0.0-0.7); EOS % 0.9 % (0.0-4.0); HEMATOCRIT 40.4 % (35.0-51.0); LYMPH # 1.2 K/uL (1.0-4.3); LYMPH % 17.1 % (20.0-40.0); MEAN CELL VOLUME 97.3 fL (80.0-94.0); MEAN CORPUSCULAR HEMOGLOBIN 33.1 pg (27.0-31.0); MEAN PLATELET VOLUME 8.4 fL (7.2-11.7); MONO # 0.9 K/uL (0.0-0.8); MONO % 12.5 % (0.0-10.0); NRBC % 0.1 % (0.0-2.0); RED CELL DISTRIBUTION WIDTH 12.4 % (11.5-14.5); WHITE BLOOD COUNT 7.1 K/uL (4.8-10.8)
[2017-09-07 07:14] LABS: ALB/GLOB RATIO 0.9 (1.0-2.1); ALKALINE PHOSPHATASE 63 U/L (38-126); ALT/SGPT 46 U/L (21-72); AST/SGOT 23 U/L (17-59); BILIRUBIN,DIRECT 0.3 mg/dL (0.0-0.4); BILIRUBIN,TOTAL 1.1 mg/dL (0.2-1.3); BLOOD UREA NITROGEN 15 mg/dL (9-20); CALCIUM 7.8 mg/dl (8.6-10.4); CARBON DIOXIDE 28 mmol/L (22-30); CHLORIDE 101 mmol/L (98-107); GFR AFRICAN-AMERICAN > 60; GLUCOSE,RANDOM 137 mg/dL (75-110); MAGNESIUM 1.3 mg/dL (1.6-2.3); PHOSPHOROUS 2.2 mg/dL (2.5-4.5); POTASSIUM 3.6 mmol/L (3.6-5.2); SODIUM 134 mmol/L (132-148); TOTAL PROTEIN 7.5 g/dL (6.3-8.3)
[2017-09-07] MEDS: (Novolin R) Insulin Human Regular 100 units/ml vial SC SCH ×4 (07:34→22:56)
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
--- NOTE | 2017-09-07 08:27 | CP.PCM.PN ---
Subjective - Date & Time of Evaluation Date of Evaluation: 09/07/17 Time of Evaluation: 08:25 - Subjective Subjective: No complaints No SOLANO A,A o x 3 following all C"s no drift MADDOX well awaiting MRI/MRA Objective - Vital Signs/Intake and Output Vital Signs (last 24 hours): Temp Pulse Resp BP Pulse Ox 97.5 F L 86 14 120/82 94 L 09/07/17 04:00 09/07/17 07:02 09/07/17 07:02 09/07/17 07:03 09/07/17 07:02 Intake and Output: 09/07/17 09/07/17 06:59 18:59 Intake Total 1200 100 Output Total 1100 Balance 100 100 - Medications Medications: Current Medications Chlordiazepoxide (Librium) 5 mg PO Q8 PRN PRN Reason: withdrawl Last Admin: 09/06/17 11:21 Dose: 5 mg Sodium Chloride (Sodium Chloride 0.9%) 1,000 mls @ 100 mls/hr IV .Q10H [facility] Last Admin: 09/07/17 08:03 Dose: 100 mls/hr Insulin Human Regular (Novolin R) 0 unit SC ACHS PRICE PRN Reason: Protocol Last Admin: 09/07/17 07:34 Dose: Not Given Metformin HCl (Glucophage) 500 mg PO BID [facility] Metoprolol Succinate (Toprol Xl) 50 mg PO BID [facility] Last Admin: 09/06/17 10:21 Dose: 50 mg Multivitamins (Hexavitamin) 1 tab PO DAILY [facility] Last Admin: 09/06/17 10:21 Dose: 1 tab Pantoprazole Sodium (Protonix Ec Tab) 40 mg PO DAILY [facility] Last Admin: 09/06/17 10:21 Dose: 40 mg Phenytoin (Dilantin) 100 mg PO TID [facility] Rosuvastatin Calcium (Crestor) 2.5 mg PO HS [facility] Last Admin: 09/06/17 21:47 Dose: 2.5 mg Sitagliptin Phosphate (Januvia) 100 mg PO DAILY [facility] Last Admin: 09/06/17 11:22 Dose: 100 mg Tacrolimus (Prograf Cap) 1 mg PO DAILY [facility] Last Admin: 09/06/17 10:22 Dose: 1 mg Thiamine HCl (Vitamin B1 Tab) 100 mg PO DAILY [facility] Last Admin: 09/06/17 10:21 Dose: 100 mg - Labs Labs: 09/07/17 06:18 09/07/17 06:18 PT 11.6 SECONDS (9.7-12.2) 09/06/17 06:16 INR 1.0 09/06/17 06:16 APTT 19 SECONDS (21-34) L D 09/06/17 06:16
[2017-09-07] MEDS: Pantoprazole 40 mg EC Tab PO SCH (09:12)
[2017-09-07] MEDS: Multiple Vitamins Tab PO SCH (09:13)
[2017-09-07] MEDS: Phenytoin 100 mg/4 ml Oral Susp UD PO SCH ×3 (09:13→17:20)
--- NOTE | 2017-09-07 09:19 | PN ---
DATE: 09/07/2017 TIME OF EVALUATION: 07:05 a.m. NEUROLOGICAL PROBLEM: Post-traumatic subarachnoid hemorrhage without any long track signs. PHYSICAL EXAMINATION: VITAL SIGNS: Blood pressure 120/82, mean arterial pressure of 94, respiratory rate 18, temperature afebrile with pulse rate 86, regular. NEUROLOGIC: The patient is arousable calling his first name. The patient does not have any headache, visual disturbances or no focal weakness. Examination of cranial nerve is normal. Motor examination is symmetric on either side. Deep tendon reflexes are unchanged. Plantars are downgoing. LABORATORY DATA: His recommended workup, MRI and MRA as recommended from Neurosurgery both are pending. Those two will be done today. ASSESSMENT AND PLAN: The patient is advised to continue hydration and keep the mean arterial pressure of around 90-100. Antiplatelets or deep venous thrombosis prophylaxis are not recommended now. When medically stable, the patient can be moved out of the unit and treated symptomatically. In the meantime, the patient can continue Cerebyx that can be changed to Dilantin 100 mg three times a day for now. Gavino Feldman MD
[2017-09-07] MEDS: Metoprolol Succinate 50 mg XL Tab PO SCH ×2 (10:40→18:27)
--- NOTE | 2017-09-07 13:22 | CP.PCM.PN ---
Subjective - Date & Time of Evaluation Date of Evaluation: 09/07/17 Time of Evaluation: 13:18 - Subjective Subjective: Patient more coopeerative. No h/a, N/V pain, bleeding or melena LFT's normal Tac level-ordered Objective - Vital Signs/Intake and Output Vital Signs (last 24 hours): Temp Pulse Resp BP Pulse Ox 98.0 F 77 18 114/67 93 L 09/07/17 08:00 09/07/17 08:00 09/07/17 08:00 09/07/17 08:00 09/07/17 08:00 Intake and Output: 09/07/17 09/07/17 06:59 18:59 Intake Total 1200 720 Output Total 1100 550 Balance 100 170 - Medications Medications: Current Medications Chlordiazepoxide (Librium) 5 mg PO Q8 PRN PRN Reason: withdrawl Last Admin: 09/06/17 11:21 Dose: 5 mg Hydralazine HCl (Apresoline) 10 mg IVP Q6H PRN PRN Reason: SBP >140 Last Admin: 09/07/17 13:12 Dose: 10 mg Sodium Chloride (Sodium Chloride 0.9%) 1,000 mls @ 100 mls/hr IV .Q10H [facility] Last Admin: 09/07/17 08:03 Dose: 100 mls/hr Insulin Human Regular (Novolin R) 0 unit SC ACHS PRICE PRN Reason: Protocol Last Admin: 09/07/17 13:17 Dose: Not Given Metformin HCl (Glucophage) 500 mg PO BID [facility] Metoprolol Succinate (Toprol Xl) 50 mg PO BID [facility] Last Admin: 09/07/17 10:40 Dose: 50 mg Multivitamins (Hexavitamin) 1 tab PO DAILY [facility] Last Admin: 09/07/17 09:13 Dose: 1 tab Pantoprazole Sodium (Protonix Ec Tab) 40 mg PO DAILY [facility] Last Admin: 09/07/17 09:12 Dose: 40 mg Phenytoin (Dilantin) 100 mg PO TID [facility] Last Admin: 09/07/17 09:13 Dose: 100 mg Rosuvastatin Calcium (Crestor) 2.5 mg PO HS [facility] Last Admin: 09/06/17 21:47 Dose: 2.5 mg Sitagliptin Phosphate (Januvia) 100 mg PO DAILY [facility] Last Admin: 09/07/17 09:13 Dose: 100 mg Tacrolimus (Prograf Cap) 1 mg PO DAILY [facility] Last Admin: 09/07/17 09:13 Dose: 1 mg Thiamine HCl (Vitamin B1 Tab) 100 mg PO DAILY [facility] Last Admin: 09/07/17 09:13 Dose: 100 mg - Labs Labs: 09/07/17 06:18 09/07/17 06:18 PT 11.6 SECONDS (9.7-12.2) 09/06/17 06:16 INR 1.0 09/06/17 06:16 APTT 19 SECONDS (21-34) L D 09/06/17 06:16 - Constitutional Appears: No Acute Distress - Eye Exam Eye Exam: EOMI, PERRL - Respiratory Exam Respiratory Exam: NORMAL BREATHING PATTERN - Cardiovascular Exam Cardiovascular Exam: REGULAR RHYTHM, +S1 - GI/Abdominal Exam GI & Abdominal Exam: Soft, Normal Bowel Sounds. absent: Rigid, Tenderness, Organomegaly, Rebound - Extremities Exam Extremities Exam: Full ROM. absent: Tenderness - Neurological Exam Neurological Exam: Alert, Awake, Oriented x3 Assessment and Plan (1) S/P liver transplant Assessment & Plan: Liver function remains stable Continue Prograff at current dose and awaiting Prograff level (aim for - 4-5) Status: Chronic (2) Hepatitis C carrier Status: Resolved (3) Alcohol intoxication Assessment & Plan: For psych evaluation. He is NOT a chronic alcoholic but has had several binge episodes that correspond to stressful events in his life or battling with his . He has been essentially alcohol free for the majority of the 12 years since his transplant. I have done alcohol levels in the office previously to corroborate this. Status: Acute (4) Subarachnoid hemorrhage Assessment & Plan: AWaiting results of MRI/MRA and Neurosurgery follow up. Status: Acute (5) H/O malignant hepatoma Status: Resolved
--- NOTE | 2017-09-07 13:47 | CP.CCUPN ---
<Jonah Lomas - Last Filed: 09/07/17 13:44> CCU Subjective - Physician Review Subjective (Free Text): ICU progress note for Dr. Eulogio Diaz Patient seen and examined at bedside this morning. Patient states he is feeling well. He does not have any pain at this time. He denies nausea, vomiting, vision changes or headaches. He has no complaints at this time. CCU Objective - Vital Signs / Intake & Output Intake and Output (Last 8hrs): Intake & Output 09/06/17 09/07/17 09/07/17 22:59 06:59 14:59 Intake Total 1040 800 720 Output Total 1050 400 550 Balance -10 400 170 Weight 148 lb Intake: Intake, IV Amount 800 800 500 Left Antecubital 800 800 500 Oral 240 220 Output: Urine 1050 400 550 Urethral (Dumont) 1050 400 550 - Physical Exam Pupils: Positive for: PERRL Extroacular Muscles: Positive for: EOMI Conjunctiva: Positive for: Normal Mouth: Positive for: Moist Mucous Membranes Neck: Positive for: Normal Range of Motion Respiratory/Chest: Positive for: Clear to Auscultation. Negative for: Respiratory Distress, Accessory Muscle Use Cardiovascular: Positive for: Regular Rate and Rhythm Abdomen: Negative for: Tenderness, Distention, Peritoneal Signs Upper Extremity: Positive for: Normal Inspection. Negative for: Edema Lower Extremity: Positive for: Normal Inspection. Negative for: Edema Neurological: Positive for: GCS=15, CN II-XII Intact, Speech Normal, Motor Func Grossly Intact Skin: Positive for: Warm, Dry Psychiatric: Positive for: Alert, Oriented x 3 - Medications Active Medications: Active Medications Generic Name Dose Route Start Last Admin Trade Name Freq PRN Reason Stop Dose Admin Chlordiazepoxide 5 mg 09/06/17 10:30 09/06/17 11:21 Librium PO 5 mg Q8 PRN Administration withdrawl Hydralazine HCl 10 mg 09/07/17 10:02 09/07/17 13:12 Apresoline IVP 10 mg Q6H PRN Administration SBP >140 Sodium Chloride 1,000 mls @ 100 mls/hr 09/06/17 06:00 09/07/17 08:03 Sodium Chloride 0.9% IV 100 mls/hr .Q10H PR[facility] Administration Insulin Human Regular 0 unit 09/06/17 16:30 09/07/17 13:17 Novolin R SC Not Given ACHS [facility] Protocol Metformin HCl 500 mg 09/06/17 10:00 Glucophage PO BID [facility] Metoprolol Succinate 50 mg 09/07/17 10:00 09/07/17 10:40 Toprol Xl PO 50 mg BID [facility] Administration Multivitamins 1 tab 09/06/17 10:00 09/07/17 09:13 Hexavitamin PO 1 tab DAILY [facility] Administration Pantoprazole Sodium 40 mg 09/06/17 10:00 09/07/17 09:12 Protonix Ec Tab PO 40 mg DAILY [facility] Administration Phenytoin 100 mg 09/07/17 10:00 09/07/17 13:31 Dilantin PO 100 mg TID [facility] Administration Rosuvastatin Calcium 2.5 mg 09/06/17 22:00 09/06/17 21:47 Crestor PO 2.5 mg HS PR[facility] Administration Sitagliptin Phosphate 100 mg 09/06/17 10:00 09/07/17 09:13 Januvia PO 100 mg DAILY [facility] Administration Tacrolimus 1 mg 09/06/17 10:00 09/07/17 09:13 Prograf Cap PO 1 mg DAILY [facility] Administration Thiamine HCl 100 mg 09/06/17 10:00 09/07/17 09:13 Vitamin B1 Tab PO 100 mg DAILY [facility] Administration - Patient Studies Lab Studies: Lab Studies 09/07/17 09/07/17 09/07/17 Range/Units 11:23 07:17 06:18 WBC 7.1 (4.8-10.8) K/uL RBC 4.15 L (4.40-5.90) Mil/uL Hgb 13.7 (12.0-18.0) g/dL Hct 40.4 (35.0-51.0) % MCV 97.3 H (80.0-94.0) fL MCH 33.1 H (27.0-31.0) pg MCHC 34.0 (33.0-37.0) g/dL RDW 12.4 (11.5-14.5) % Plt Count 167 (130-400) K/uL MPV 8.4 (7.2-11.7) fL Neut % (Auto) 68.8 (50.0-75.0) % Lymph % (Auto) 17.1 L (20.0-40.0) % Gaines % (Auto) 12.5 H (0.0-10.0) % Eos % (Auto) 0.9 (0.0-4.0) % Baso % (Auto) 0.7 (0.0-2.0) % Neut # 4.9 (1.8-7.0) K/uL Lymph # 1.2 (1.0-4.3) K/uL Gaines # 0.9 H (0.0-0.8) K/uL Eos # 0.1 (0.0-0.7) K/uL Baso # 0.0 (0.0-0.2) K/uL Sodium (132-148) mmol/L Potassium (3.6-5.2) mmol/L Chloride (98-107) mmol/L Carbon Dioxide (22-30) mmol/L Anion Gap (10-20) BUN (9-20) mg/dL Creatinine (0.8-1.5) mg/dL Est GFR ( Amer) Est GFR (Non-Af Amer) POC Glucose (mg/dL) 122 H 142 H (65-110) mg/dL Random Glucose (75-110) mg/dL Calcium (8.6-10.4) mg/dl Phosphorus (2.5-4.5) mg/dL Magnesium (1.6-2.3) mg/dL Total Bilirubin (0.2-1.3) mg/dL Direct Bilirubin (0.0-0.4) mg/dL AST (17-59) U/L ALT (21-72) U/L Alkaline Phosphatase (38-126) U/L Total Protein (6.3-8.3) g/dL Albumin (3.5-5.0) g/dL Globulin (2.2-3.9) gm/dL Albumin/Globulin Ratio (1.0-2.1) Alpha Fetoprotein (0.0-7.5) ng/mL 09/07/17 09/07/17 09/06/17 Range/Units 06:18 06:18 21:46 WBC (4.8-10.8) K/uL RBC (4.40-5.90) Mil/uL Hgb (12.0-18.0) g/dL Hct (35.0-51.0) % MCV (80.0-94.0) fL MCH (27.0-31.0) pg MCHC (33.0-37.0) g/dL RDW (11.5-14.5) % Plt Count (130-400) K/uL MPV (7.2-11.7) fL Neut % (Auto) (50.0-75.0) % Lymph % (Auto) (20.0-40.0) % Gaines % (Auto) (0.0-10.0) % Eos % (Auto) (0.0-4.0) % Baso % (Auto) (0.0-2.0) % Neut # (1.8-7.0) K/uL Lymph # (1.0-4.3) K/uL Gaines # (0.0-0.8) K/uL Eos # (0.0-0.7) K/uL Baso # (0.0-0.2) K/uL Sodium 134 (132-148) mmol/L Potassium 3.6 (3.6-5.2) mmol/L Chloride 101 (98-107) mmol/L Carbon Dioxide 28 (22-30) mmol/L Anion Gap 9 L (10-20) BUN 15 (9-20) mg/dL Creatinine 0.9 (0.8-1.5) mg/dL Est GFR ( Amer) > 60 Est GFR (Non-Af Amer) > 60 POC Glucose (mg/dL) 131 H (65-110) mg/dL Random Glucose 137 H (75-110) mg/dL Calcium 7.8 L (8.6-10.4) mg/dl Phosphorus 2.2 L (2.5-4.5) mg/dL Magnesium 1.3 L (1.6-2.3) mg/dL Total Bilirubin 1.1 (0.2-1.3) mg/dL Direct Bilirubin 0.3 (0.0-0.4) mg/dL AST 23 (17-59) U/L ALT 46 (21-72) U/L Alkaline Phosphatase 63 (38-126) U/L Total Protein 7.5 (6.3-8.3) g/dL Albumin 3.6 (3.5-5.0) g/dL Globulin 3.9 (2.2-3.9) gm/dL Albumin/Globulin Ratio 0.9 L (1.0-2.1) Alpha Fetoprotein 3.7 (0.0-7.5) ng/mL 09/06/17 Range/Units 16:07 WBC (4.8-10.8) K/uL RBC (4.40-5.90) Mil/uL Hgb (12.0-18.0) g/dL Hct (35.0-51.0) % MCV (80.0-94.0) fL MCH (27.0-31.0) pg MCHC (33.0-37.0) g/dL RDW (11.5-14.5) % Plt Count (130-400) K/uL MPV (7.2-11.7) fL Neut % (Auto) (50.0-75.0) % Lymph % (Auto) (20.0-40.0) % Gaines % (Auto) (0.0-10.0) % Eos % (Auto) (0.0-4.0) % Baso % (Auto) (0.0-2.0) % Neut # (1.8-7.0) K/uL Lymph # (1.0-4.3) K/uL Gaines # (0.0-0.8) K/uL Eos # (0.0-0.7) K/uL Baso # (0.0-0.2) K/uL Sodium (132-148) mmol/L Potassium (3.6-5.2) mmol/L Chloride (98-107) mmol/L Carbon Dioxide (22-30) mmol/L Anion Gap (10-20) BUN (9-20) mg/dL Creatinine (0.8-1.5) mg/dL Est GFR ( Amer) Est GFR (Non-Af Amer) POC Glucose (mg/dL) 130 H (65-110) mg/dL Random Glucose (75-110) mg/dL Calcium (8.6-10.4) mg/dl Phosphorus (2.5-4.5) mg/dL Magnesium (1.6-2.3) mg/dL Total Bilirubin (0.2-1.3) mg/dL Direct Bilirubin (0.0-0.4) mg/dL AST (17-59) U/L ALT (21-72) U/L Alkaline Phosphatase (38-126) U/L Total Protein (6.3-8.3) g/dL Albumin (3.5-5.0) g/dL Globulin (2.2-3.9) gm/dL Albumin/Globulin Ratio (1.0-2.1) Alpha Fetoprotein (0.0-7.5) ng/mL Laboratory Results - last 24 hr 09/06/17 09/06/17 09/07/17 16:07 21:46 06:18 WBC RBC Hgb Hct MCV MCH MCHC RDW Plt Count MPV Neut % (Auto) Lymph % (Auto) Gaines % (Auto) Eos % (Auto) Baso % (Auto) Neut # Lymph # Gaines # Eos # Baso # Sodium 134 Potassium 3.6 Chloride 101 Carbon Dioxide 28 Anion Gap 9 L BUN 15 Creatinine 0.9 Est GFR ( Amer) > 60 Est GFR (Non-Af Amer) > 60 POC Glucose (mg/dL) 130 H 131 H Random Glucose 137 H Calcium 7.8 L Phosphorus 2.2 L Magnesium 1.3 L Total Bilirubin 1.1 Direct Bilirubin 0.3 AST 23 ALT 46 Alkaline Phosphatase 63 Total Protein 7.5 Albumin 3.6 Globulin 3.9 Albumin/Globulin Ratio 0.9 L Alpha Fetoprotein 09/07/17 09/07/17 09/07/17 06:18 06:18 07:17 WBC 7.1 RBC 4.15 L Hgb 13.7 Hct 40.4 MCV 97.3 H MCH 33.1 H MCHC 34.0 RDW 12.4 Plt Count 167 MPV 8.4 Neut % (Auto) 68.8 Lymph % (Auto) 17.1 L Gaines % (Auto) 12.5 H Eos % (Auto) 0.9 Baso % (Auto) 0.7 Neut # 4.9 Lymph # 1.2 Gaines # 0.9 H Eos # 0.1 Baso # 0.0 Sodium Potassium Chloride Carbon Dioxide Anion Gap BUN Creatinine Est GFR ( Amer) Est GFR (Non-Af Amer) POC Glucose (mg/dL) 142 H Random Glucose Calcium Phosphorus Magnesium Total Bilirubin Direct Bilirubin AST ALT Alkaline Phosphatase Total Protein Albumin Globulin Albumin/Globulin Ratio Alpha Fetoprotein 3.7 09/07/17 11:23 WBC RBC Hgb Hct MCV MCH MCHC RDW Plt Count MPV Neut % (Auto) Lymph % (Auto) Gaines % (Auto) Eos % (Auto) Baso % (Auto) Neut # Lymph # Gaines # Eos # Baso # Sodium Potassium Chloride Carbon Dioxide Anion Gap BUN Creatinine Est GFR ( Amer) Est GFR (Non-Af Amer) POC Glucose (mg/dL) 122 H Random Glucose Calcium Phosphorus Magnesium Total Bilirubin Direct Bilirubin AST ALT Alkaline Phosphatase Total Protein Albumin Globulin Albumin/Globulin Ratio Alpha Fetoprotein Fingerstick Blood Sugar Results: 122 Review of Systems - Review of Systems All systems: reviewed and no additional remarkable complaints except (as per HPI ) Critical Care Progress Note - Nutrition Nutrition: Nutrition Category Date Time Status Consistent Carbohydrate [DIET] Diets 09/06/17 Lunch Active Assessment/Plan - Assessment and Plan (Free Text) Assessment: 67-year-old male with a history of diabetes, hypertension, hypercholesterolemia , with history of liver transplant admitted with subarachnoid hemorrhages secondary to most likely traumatic. Plan: Neuro: [facility] Neuro consulted, Dr. Feldman, help appreciated Neurosurg consulted, Dr. Jackson, help appreciated Head CT 09/05 - Extensive subarachnoid hemorrhage with very small right frontal subdural bleed; atrophy and small vessel disease; left posterior parietal scalp bruising, no fracture; right middle ear and mastoid disease. Brain MRI 09/07 - Linear shaped foci of hypointense T2 GRE signal noted in the bifrontal region and left temporal region as well as around the basilar Systane consistent with subarachnoid hemorrhage and corresponding to the previous CT findings. No evidence of discrete hematoma or extra-axial collection. Mild-to- moderate atrophy. No evidence of acute infarction. Librium 5mg PO q8h PRN Hydralazine 10mg IVP q6h PRN for SBP >140 Metoprolol Succ. 50mg PO BID Phenytoin 100mg PO TID NS @ 100ml/hr Thiamine 100mg PO daily Multivitamins 1 tab PO daily f/u neuro recs GI: hx of liver transplant Dr. Anand consulted, help appreciated AST 23/ALT 46 f/u GI recs, - continue Prograff, awaiting Prograff level (aim for - 4-5) Endo: ISS Januvia 100mg PO daily Prophylactic Care: Anticoag contra indicated due to [facility] SCDs Protonix 40mg PO daily Case discussed with Dr. Eulogio Lomas PGY1 <Lazarus Diaz M - Last Filed: 09/08/17 18:08> CCU Objective - Vital Signs / Intake & Output Vital Signs (Last 4 hours): Vital Signs Temp Pulse Resp BP Pulse Ox 09/08/17 16:15 98.8 F 79 20 133/82 95 Intake and Output (Last 8hrs): Intake & Output 09/08/17 09/08/17 09/08/17 06:59 14:59 22:59 Intake Total 405 560 Output Total 600 900 Balance -195 -340 Weight 147 lb 8 oz Intake: Intake, IV Amount 405 90 Left Antecubital 405 90 Oral 470 Output: Urine 600 900 Urethral ([place]umont) 600 900 Stool 0 Emesis 0 - Medications Active Medications: Active Medications Generic Name Dose Route Start Last Admin Trade Name Freq PRN Reason Stop Dose Admin Amlodipine Besylate 5 mg 09/08/17 10:00 09/08/17 09:53 Norvasc PO 5 mg DAILY [facility] Administration Chlordiazepoxide 5 mg 09/08/17 22:00 Librium PO 09/10/17 22:01 Q12 [facility] Potassium Phosphate 15 mmole/ 255 mls @ 42.5 mls/hr 09/08/17 13:00 09/08/17 13:29 Dextrose IVPB 09/08/17 18:59 42.5 mls/hr ONCE ONE Administration Insulin Human Regular 0 unit 09/06/17 16:30 09/08/17 16:50 Novolin R SC Not Given ACHS [facility] Protocol Metformin HCl 500 mg 09/06/17 10:00 Glucophage PO BID [facility] Metoprolol Succinate 50 mg 09/07/17 10:00 09/08/17 17:43 Toprol Xl PO 50 mg BID [facility] Administration Multivitamins 1 tab 09/06/17 10:00 09/08/17 09:49 Hexavitamin PO 1 tab DAILY [facility] Administration Pantoprazole Sodium 40 mg 09/06/17 10:00 09/08/17 09:49 Protonix Ec Tab PO 40 mg DAILY [facility] Administration Phenytoin 100 mg 09/07/17 10:00 09/08/17 17:43 Dilantin PO 100 mg TID [facility] Administration Rosuvastatin Calcium 2.5 mg 09/06/17 22:00 12/15/17 21:39 Crestor PO 2.5 mg HS PR[facility] Administration Sitagliptin Phosphate 50 mg 09/09/17 10:00 Januvia PO DAILY PR[facility] Tacrolimus 1 mg 09/06/17 10:00 09/08/17 09:50 Prograf Cap PO 1 mg DAILY [facility] Administration Thiamine HCl 100 mg 09/06/17 10:00 09/08/17 09:49 Vitamin B1 Tab PO 100 mg DAILY [facility] Administration - Patient Studies Lab Studies: Microbiology Studies 09/05/17 23:11 MRSA Culture (Admit) - Final Nose MRSA NOT DETECTED Lab Studies 09/08/17 09/08/17 09/08/17 Range/Units 16:45 11:06 07:21 WBC (4.8-10.8) K/uL RBC (4.40-5.90) Mil/uL Hgb (12.0-18.0) g/dL Hct (35.0-51.0) % MCV (80.0-94.0) fL MCH (27.0-31.0) pg MCHC (33.0-37.0) g/dL RDW (11.5-14.5) % Plt Count (130-400) K/uL MPV (7.2-11.7) fL Neut % (Auto) (50.0-75.0) % Lymph % (Auto) (20.0-40.0) % Gaines % (Auto) (0.0-10.0) % Eos % (Auto) (0.0-4.0) % Baso % (Auto) (0.0-2.0) % Neut # (1.8-7.0) K/uL Lymph # (1.0-4.3) K/uL Gaines # (0.0-0.8) K/uL Eos # (0.0-0.7) K/uL Baso # (0.0-0.2) K/uL Sodium (132-148) mmol/L Potassium (3.6-5.2) mmol/L Chloride (98-107) mmol/L Carbon Dioxide (22-30) mmol/L Anion Gap (10-20) BUN (9-20) mg/dL Creatinine (0.8-1.5) mg/dL Est GFR ( Amer) Est GFR (Non-Af Amer) POC Glucose (mg/dL) 110 159 H 108 (65-110) mg/dL Random Glucose (75-110) mg/dL Calcium (8.6-10.4) mg/dl Phosphorus (2.5-4.5) mg/dL Magnesium (1.6-2.3) mg/dL Total Bilirubin (0.2-1.3) mg/dL AST (17-59) U/L ALT (21-72) U/L Alkaline Phosphatase (38-126) U/L Total Protein (6.3-8.3) g/dL Albumin (3.5-5.0) g/dL Globulin (2.2-3.9) gm/dL Albumin/Globulin Ratio (1.0-2.1) 09/08/17 09/08/17 09/07/17 Range/Units 06:00 06:00 21:29 WBC 5.7 (4.8-10.8) K/uL RBC 4.15 L (4.40-5.90) Mil/uL Hgb 14.1 (12.0-18.0) g/dL Hct 40.8 (35.0-51.0) % MCV 98.3 H (80.0-94.0) fL MCH 34.0 H (27.0-31.0) pg MCHC 34.6 (33.0-37.0) g/dL RDW 12.2 (11.5-14.5) % Plt Count 163 (130-400) K/uL MPV 8.9 (7.2-11.7) fL Neut % (Auto) 72.9 (50.0-75.0) % Lymph % (Auto) 13.1 L (20.0-40.0) % Gaines % (Auto) 10.5 H (0.0-10.0) % Eos % (Auto) 2.5 (0.0-4.0) % Baso % (Auto) 1.0 (0.0-2.0) % Neut # 4.2 (1.8-7.0) K/uL Lymph # 0.7 L (1.0-4.3) K/uL Gaines # 0.6 (0.0-0.8) K/uL Eos # 0.1 (0.0-0.7) K/uL Baso # 0.1 (0.0-0.2) K/uL Sodium 134 (132-148) mmol/L Potassium 3.6 (3.6-5.2) mmol/L Chloride 103 (98-107) mmol/L Carbon Dioxide 25 (22-30) mmol/L Anion Gap 10 (10-20) BUN 13 (9-20) mg/dL Creatinine 0.9 (0.8-1.5) mg/dL Est GFR ( Amer) > 60 Est GFR (Non-Af Amer) > 60 POC Glucose (mg/dL) 103 (65-110) mg/dL Random Glucose 125 H (75-110) mg/dL Calcium 7.4 L (8.6-10.4) mg/dl Phosphorus 2.4 L (2.5-4.5) mg/dL Magnesium 2.0 (1.6-2.3) mg/dL Total Bilirubin 0.9 (0.2-1.3) mg/dL AST 23 (17-59) U/L ALT 38 (21-72) U/L Alkaline Phosphatase 65 (38-126) U/L Total Protein 7.4 (6.3-8.3) g/dL Albumin 3.5 (3.5-5.0) g/dL Globulin 3.9 (2.2-3.9) gm/dL Albumin/Globulin Ratio 0.9 L (1.0-2.1) Laboratory Results - last 24 hr 09/07/17 09/08/17 09/08/17 21:29 06:00 06:00 WBC 5.7 RBC 4.15 L Hgb 14.1 Hct 40.8 MCV 98.3 H MCH 34.0 H MCHC 34.6 RDW 12.2 Plt Count 163 MPV 8.9 Neut % (Auto) 72.9 Lymph % (Auto) 13.1 L Gaines % (Auto) 10.5 H Eos % (Auto) 2.5 Baso % (Auto) 1.0 Neut # 4.2 Lymph # 0.7 L Gaines # 0.6 Eos # 0.1 Baso # 0.1 Sodium 134 Potassium 3.6 Chloride 103 Carbon Dioxide 25 Anion Gap 10 BUN 13 Creatinine 0.9 Est GFR ( Amer) > 60 Est GFR (Non-Af Amer) > 60 POC Glucose (mg/dL) 103 Random Glucose 125 H Calcium 7.4 L Phosphorus 2.4 L Magnesium 2.0 Total Bilirubin 0.9 AST 23 ALT 38 Alkaline Phosphatase 65 Total Protein 7.4 Albumin 3.5 Globulin 3.9 Albumin/Globulin Ratio 0.9 L 09/08/17 09/08/17 09/08/17 07:21 11:06 16:45 WBC RBC Hgb Hct MCV MCH MCHC RDW Plt Count MPV Neut % (Auto) Lymph % (Auto) Gaines % (Auto) Eos % (Auto) Baso % (Auto) Neut # Lymph # Gaines # Eos # Baso # Sodium Potassium Chloride Carbon Dioxide Anion Gap BUN Creatinine Est GFR ( Amer) Est GFR (Non-Af Amer) POC Glucose (mg/dL) 108 159 H 110 Random Glucose Calcium Phosphorus Magnesium Total Bilirubin AST ALT Alkaline Phosphatase Total Protein Albumin Globulin Albumin/Globulin Ratio Critical Care Progress Note - Nutrition Nutrition: Nutrition Category Date Time Status Consistent Carbohydrate [DIET] Diets 09/06/17 Lunch Active Assessment/Plan - Assessment and Plan (Free Text) Plan: Patient remains hemodynamically stable. BP controlled - Date & Time Date: 09/07/17 Time: 18:08
--- NOTE | 2017-09-07 13:54 | MRI ---
PROCEDURE: MRI BRAIN WITHOUT CONTRAST HISTORY: [facility] COMPARISON: Comparison is made to the previous CT of the head and CTA of the head dated 09/05/2017 TECHNIQUE: Multiplanar, multisequence MR images of the brain were obtained without intravenous contrast enhancement. FINDINGS: Suboptimal study due to the patient's motion. HEMORRHAGE: There are linear foci of hypointense T2 GRE signal noted at the parasagittal portion of the both frontal lobes and in the left temporal lobe corresponding to the subarachnoid hemorrhage noted in the previous CT. No evidence of new hemorrhage or hematoma in the brain. DWI: No evidence of an acute or early subacute infarction. BRAIN PARENCHYMA: No mass effect or edema. [id number] atrophy is noted. There are white matter changes seen at the periventricular and subcortical regions likely due to chronic microvascular ischemic disease. VENTRICLES: Unremarkable. No hydrocephalus. CRANIUM: Unremarkable. ORBITS: Grossly unremarkable. PARANASAL SINUSES/MASTOIDS: Partial opacification of the right mastoid is again noted may represent mastoiditis in the appropriate clinical setting. No evidence of sinusitis. VASCULAR SYSTEM: Skull base flow voids intact. OTHER FINDINGS: None. IMPRESSION: Linear shaped foci of hypointense T2 GRE signal noted in the bifrontal region and left temporal region as well as around the basilar Systane consistent with subarachnoid hemorrhage and corresponding to the previous CT findings. No evidence of discrete hematoma or extra-axial collection. [id number] atrophy. No evidence of acute infarction.
--- NOTE | 2017-09-07 14:16 | MRI ---
PROCEDURE: Magnetic Resonance Angiography Brain HISTORY: subarachnoid bleed COMPARISON: None available. TECHNIQUE: 3D time of flight MR angiography of the intracranial arteries was performed. Rotating maximum intensity projection images were generated. FINDINGS: INTERNAL CAROTID ARTERIES: Unremarkable. The skull base, petrous, cavernous and supraclinoid segments are bilaterally widely patient. ANTERIOR CEREBRAL ARTERIES: Unremarkable. A1 and A2 segments are widely patent. Smaller distal branches unremarkable, as visualized. MIDDLE CEREBRAL ARTERIES: Unremarkable. M1 and M2 segments are widely patent. Perisylvian branches grossly symmetric. POSTERIOR CIRCULATION: Basilar Artery: Unremarkable. Distal Vertebral Arteries: Unremarkable. Posterior Cerebral Arteries: Unremarkable. Posterior Inferior Cerebellar Arteries: Unremarkable. ANEURYSM/ VASCULAR MALFORMATIONS: None. OTHER FINDINGS: None. IMPRESSION: No MRA evidence of sizable aneurysm in the visualized intracranial arteries. No evidence of focal significant stenosis or occlusion in the intracranial arteries.
[2017-09-07] MEDS: Magnesium Sulfate 1 gm in D5W 1 GM/100 ML BAG IVPB SCH ×2 (14:25→15:29)
[2017-09-07] MEDS: Potassium & Sodium Phosphate PO SCH ×2 (14:48→17:21)
--- NOTE | 2017-09-07 21:20 | CP.PCM.PN ---
Subjective - Date & Time of Evaluation Date of Evaluation: 09/07/17 Time of Evaluation: 21:16 - Subjective Subjective: pt is doing ok no distress pt is unsteady with walking on 1:1 for safety eating poorly no nausea no vomiting Objective - Vital Signs/Intake and Output Vital Signs (last 24 hours): Temp Pulse Resp BP Pulse Ox 98.3 F 80 21 118/54 L 96 09/07/17 20:00 09/07/17 18:00 09/07/17 18:00 09/07/17 18:00 09/07/17 18:00 Intake and Output: 09/07/17 09/08/17 18:59 06:59 Intake Total 2020 200 Output Total 925 200 Balance 1095 0 clinically stable unsteady gait no edema - Medications Medications: Current Medications Chlordiazepoxide (Librium) 5 mg PO Q8 PRN PRN Reason: withdrawl Last Admin: 09/06/17 11:21 Dose: 5 mg Hydralazine HCl (Apresoline) 10 mg IVP Q6H PRN PRN Reason: SBP >140 Last Admin: 09/07/17 13:12 Dose: 10 mg Sodium Chloride (Sodium Chloride 0.9%) 1,000 mls @ 100 mls/hr IV .Q10H [facility] Last Admin: 09/07/17 18:21 Dose: Not Given Insulin Human Regular (Novolin R) 0 unit SC ACHS [facility] PRN Reason: Protocol Last Admin: 09/07/17 16:58 Dose: Not Given Metformin HCl (Glucophage) 500 mg PO BID [facility] Metoprolol Succinate (Toprol Xl) 50 mg PO BID [facility] Last Admin: 09/07/17 18:27 Dose: 50 mg Multivitamins (Hexavitamin) 1 tab PO DAILY [facility] Last Admin: 09/07/17 09:13 Dose: 1 tab Pantoprazole Sodium (Protonix Ec Tab) 40 mg PO DAILY [facility] Last Admin: 09/07/17 09:12 Dose: 40 mg Phenytoin (Dilantin) 100 mg PO TID [facility] Last Admin: 09/07/17 17:20 Dose: 100 mg Rosuvastatin Calcium (Crestor) 2.5 mg PO HS [facility] Last Admin: 09/06/17 21:47 Dose: 2.5 mg Sitagliptin Phosphate (Januvia) 100 mg PO DAILY [facility] Last Admin: 09/07/17 09:13 Dose: 100 mg Tacrolimus (Prograf Cap) 1 mg PO DAILY [facility] Last Admin: 09/07/17 09:13 Dose: 1 mg Thiamine HCl (Vitamin B1 Tab) 100 mg PO DAILY [facility] Last Admin: 09/07/17 09:13 Dose: 100 mg - Labs Labs: 09/07/17 06:18 09/07/17 06:18 PT 11.6 SECONDS (9.7-12.2) 09/06/17 06:16 INR 1.0 09/06/17 06:16 APTT 19 SECONDS (21-34) L D 09/06/17 06:16 MRI brain and MRA showing SAH no evidence of aneurysm Assessment and Plan (1) Alcohol intoxication Status: Acute (2) Subarachnoid hemorrhage Assessment & Plan: likely post traumatic SAH will need gait training fall precautions no anticoagulation or antiplatelets will f/u Status: Acute (3) S/P liver transplant Status: Chronic
[2017-09-07] MEDS ORDERED: Sodium Chloride 0.9% 1,000 ML IV SCH (21:21)
[2017-09-07] MEDS: Rosuvastatin Calcium 2.5 mg Tab PO SCH (21:39)
[2017-09-08 06:20] LABS: BASO # 0.1 K/uL (0.0-0.2); EOS # 0.1 K/uL (0.0-0.7); EOS % 2.5 % (0.0-4.0); HEMATOCRIT 40.8 % (35.0-51.0); LYMPH # 0.7 K/uL (1.0-4.3); LYMPH % 13.1 % (20.0-40.0); MEAN CELL VOLUME 98.3 fL (80.0-94.0); MEAN CORPUSCULAR HGB CONC 34.6 g/dL (33.0-37.0); MEAN PLATELET VOLUME 8.9 fL (7.2-11.7); MONO # 0.6 K/uL (0.0-0.8); MONO % 10.5 % (0.0-10.0); RED CELL DISTRIBUTION WIDTH 12.2 % (11.5-14.5); WHITE BLOOD COUNT 5.7 K/uL (4.8-10.8)
[2017-09-08 06:33] LABS: ALB/GLOB RATIO 0.9 (1.0-2.1); ALKALINE PHOSPHATASE 65 U/L (38-126); ALT/SGPT 38 U/L (21-72); AST/SGOT 23 U/L (17-59); BILIRUBIN,TOTAL 0.9 mg/dL (0.2-1.3); BLOOD UREA NITROGEN 13 mg/dL (9-20); CALCIUM 7.4 mg/dl (8.6-10.4); CARBON DIOXIDE 25 mmol/L (22-30); CHLORIDE 103 mmol/L (98-107); GFR AFRICAN-AMERICAN > 60; GLUCOSE,RANDOM 125 mg/dL (75-110); PHOSPHOROUS 2.4 mg/dL (2.5-4.5); POTASSIUM 3.6 mmol/L (3.6-5.2); SODIUM 134 mmol/L (132-148); TOTAL PROTEIN 7.4 g/dL (6.3-8.3)
[2017-09-08] MEDS: (Novolin R) Insulin Human Regular 100 units/ml vial SC SCH ×3 (07:47→16:50)
[2017-09-08] MEDS: Pantoprazole 40 mg EC Tab PO SCH (09:49)
[2017-09-08] MEDS: Multiple Vitamins Tab PO SCH (09:49)
[2017-09-08] MEDS: Phenytoin 100 mg/4 ml Oral Susp UD PO SCH ×3 (09:49→17:43)
[2017-09-08] MEDS: Metoprolol Succinate 50 mg XL Tab PO SCH ×2 (09:50→17:43)
--- NOTE | 2017-09-08 09:54 | CP.PCM.PN ---
Subjective - Date & Time of Evaluation Date of Evaluation: 09/08/17 Time of Evaluation: 09:51 - Subjective Subjective: Patient denies having nausea, vomiting, abdominal pain. He did not have a bowel movement so far today, though he had one last night. Objective - Vital Signs/Intake and Output Vital Signs (last 24 hours): Temp Pulse Resp BP Pulse Ox 98 F 66 17 115/57 L 94 L 09/08/17 04:00 09/08/17 07:00 09/08/17 07:00 09/08/17 06:45 09/08/17 07:00 Intake and Output: 09/08/17 09/08/17 06:59 18:59 Intake Total 850 Output Total 800 Balance 50 - Medications Medications: Current Medications Amlodipine Besylate (Norvasc) 5 mg PO DAILY [facility] Chlordiazepoxide (Librium) 5 mg PO Q8 PRN PRN Reason: withdrawl Last Admin: 09/08/17 09:49 Dose: 5 mg Sodium Chloride (Sodium Chloride 0.9%) 1,000 mls @ 45 mls/hr IV .[id number] [facility] Last Admin: 09/07/17 21:37 Dose: 45 mls/hr Insulin Human Regular (Novolin R) 0 unit SC ACHS [facility] PRN Reason: Protocol Last Admin: 09/08/17 07:47 Dose: Not Given Metformin HCl (Glucophage) 500 mg PO BID [facility] Metoprolol Succinate (Toprol Xl) 50 mg PO BID [facility] Last Admin: 09/08/17 09:50 Dose: 50 mg Multivitamins (Hexavitamin) 1 tab PO DAILY [facility] Last Admin: 09/08/17 09:49 Dose: 1 tab Pantoprazole Sodium (Protonix Ec Tab) 40 mg PO DAILY [facility] Last Admin: 09/08/17 09:49 Dose: 40 mg Phenytoin (Dilantin) 100 mg PO TID [facility] Last Admin: 09/08/17 09:49 Dose: 100 mg Rosuvastatin Calcium (Crestor) 2.5 mg PO HS [facility] Last Admin: 09/07/17 21:39 Dose: 2.5 mg Sitagliptin Phosphate (Januvia) 100 mg PO DAILY [facility] Last Admin: 09/08/17 09:50 Dose: 100 mg Tacrolimus (Prograf Cap) 1 mg PO DAILY [facility] Last Admin: 09/08/17 09:50 Dose: 1 mg Thiamine HCl (Vitamin B1 Tab) 100 mg PO DAILY [facility] Last Admin: 09/08/17 09:49 Dose: 100 mg - Labs Labs: 09/08/17 06:00 09/08/17 06:00 PT 11.6 SECONDS (9.7-12.2) 09/06/17 06:16 INR 1.0 09/06/17 06:16 APTT 19 SECONDS (21-34) L D 09/06/17 06:16 - Constitutional Appears: No Acute Distress - Head Exam Head Exam: ATRAUMATIC, NORMOCEPHALIC - Eye Exam Eye Exam: EOMI - Neck Exam Neck Exam: Lymphadenopathy, Thyromegaly - Respiratory Exam Respiratory Exam: NORMAL BREATHING PATTERN. absent: Rales, Rhonchi, Wheezes - Cardiovascular Exam Cardiovascular Exam: REGULAR RHYTHM, +S1, +S2. absent: Gallop, Rubs, Murmur - GI/Abdominal Exam GI & Abdominal Exam: Soft, Normal Bowel Sounds. absent: Tenderness, Mass, Organomegaly - Rectal Exam Rectal Exam: Deferred - Extremities Exam Extremities Exam: absent: Calf Tenderness, Pedal Edema Assessment and Plan (1) Alcohol intoxication Assessment & Plan: Alcohol level was 175 on admission. Emir is currently alert and oriented. As per Dr. Anand, the alcohol binges occur during times of stress. Recommend psych follow up. Status: Acute (2) S/P liver transplant Assessment & Plan: Patient is stable on tacrolimus. Status: Chronic
[2017-09-08] MEDS ORDERED: Potassium Phosphate 15 MMOLE in Dextrose 5% In Water 250 ML IVPB ONE (13:00)
--- NOTE | 2017-09-08 16:28 | CP.PCM.PN ---
Subjective - Date & Time of Evaluation Date of Evaluation: 09/08/17 Time of Evaluation: 16:25 - Subjective Subjective: pt is transferred to 6th floor today he is on 1:1 for safety watch no pain no headache no nausea afebrile eating well urine better no confusion he knows where he is Objective - Vital Signs/Intake and Output Vital Signs (last 24 hours): Temp Pulse Resp BP Pulse Ox 98.8 F 79 20 133/82 95 09/08/17 16:15 09/08/17 16:15 09/08/17 16:15 09/08/17 16:15 09/08/17 16:15 Intake and Output: 09/08/17 09/08/17 06:59 18:59 Intake Total 850 560 Output Total 800 900 Balance 50 -340 chest good air entry abd soft no edema leg swelling negative - Medications Medications: Current Medications Amlodipine Besylate (Norvasc) 5 mg PO DAILY [facility] Last Admin: 09/08/17 09:53 Dose: 5 mg Potassium Phosphate 15 mmole/ (Dextrose) 255 mls @ 42.5 mls/hr IVPB ONCE ONE Stop: 09/08/17 18:59 Last Admin: 09/08/17 13:29 Dose: 42.5 mls/hr Insulin Human Regular (Novolin R) 0 unit SC ACHS [facility] PRN Reason: Protocol Last Admin: 09/08/17 11:57 Dose: 1 unit Metformin HCl (Glucophage) 500 mg PO BID [facility] Metoprolol Succinate (Toprol Xl) 50 mg PO BID [facility] Last Admin: 09/08/17 09:50 Dose: 50 mg Multivitamins (Hexavitamin) 1 tab PO DAILY [facility] Last Admin: 09/08/17 09:49 Dose: 1 tab Pantoprazole Sodium (Protonix Ec Tab) 40 mg PO DAILY [facility] Last Admin: 09/08/17 09:49 Dose: 40 mg Phenytoin (Dilantin) 100 mg PO TID [facility] Last Admin: 09/08/17 13:29 Dose: 100 mg Rosuvastatin Calcium (Crestor) 2.5 mg PO [facility] Last Admin: 09/07/17 21:39 Dose: 2.5 mg Tacrolimus (Prograf Cap) 1 mg PO DAILY [facility] Last Admin: 09/08/17 09:50 Dose: 1 mg Thiamine HCl (Vitamin B1 Tab) 100 mg PO DAILY [facility] Last Admin: 09/08/17 09:49 Dose: 100 mg - Labs Labs: 09/08/17 06:00 09/08/17 06:00 PT 11.6 SECONDS (9.7-12.2) 09/06/17 06:16 INR 1.0 09/06/17 06:16 APTT 19 SECONDS (21-34) L D 09/06/17 06:16 Assessment and Plan (1) Alcohol intoxication Status: Acute (2) Subarachnoid hemorrhage Assessment & Plan: SAH possibly traumatic fall precautions PT ambulation with walker and PT continue current treatment Status: Acute (3) S/P liver transplant Status: Chronic
[2017-09-08] MEDS: Rosuvastatin Calcium 2.5 mg Tab PO SCH (21:39)
[2017-09-09] MEDS: (Novolin R) Insulin Human Regular 100 units/ml vial SC SCH ×4 (07:55→21:17)
[2017-09-09 08:17] LABS: BASO % 0.8 % (0.0-2.0); EOS # 0.2 K/uL (0.0-0.7); HEMATOCRIT 40.9 % (35.0-51.0); LYMPH # 0.9 K/uL (1.0-4.3); LYMPH % 15.3 % (20.0-40.0); MEAN CORPUSCULAR HGB CONC 34.7 g/dL (33.0-37.0); MEAN PLATELET VOLUME 8.9 fL (7.2-11.7); MONO # 0.6 K/uL (0.0-0.8); MONO % 10.7 % (0.0-10.0); RED CELL DISTRIBUTION WIDTH 12.2 % (11.5-14.5)
[2017-09-09 08:42] LABS: ALB/GLOB RATIO 1.2 (1.0-2.1); ALKALINE PHOSPHATASE 78 U/L (38-126); ALT/SGPT 36 U/L (21-72); AST/SGOT 18 U/L (17-59); BILIRUBIN,TOTAL 0.5 mg/dL (0.2-1.3); BLOOD UREA NITROGEN 14 mg/dL (9-20); CALCIUM 7.9 mg/dl (8.6-10.4); CARBON DIOXIDE 27 mmol/L (22-30); CHLORIDE 103 mmol/L (98-107); GFR AFRICAN-AMERICAN > 60; GLUCOSE,RANDOM 179 mg/dL (75-110); MAGNESIUM 1.8 mg/dL (1.6-2.3); PHOSPHOROUS 2.3 mg/dL (2.5-4.5); POTASSIUM 3.9 mmol/L (3.6-5.2); SODIUM 135 mmol/L (132-148); TOTAL PROTEIN 6.2 g/dL (6.3-8.3)
--- NOTE | 2017-09-09 09:54 | CP.PCM.PN ---
Subjective - Date & Time of Evaluation Date of Evaluation: 09/09/17 Time of Evaluation: 09:51 - Subjective Subjective: Patient denies having nausea, vomiting and abdominal pain. His appetite has been good. He denies having rectal bleeding. Objective - Vital Signs/Intake and Output Vital Signs (last 24 hours): Temp Pulse Resp BP Pulse Ox 98.8 F 73 20 144/78 97 09/09/17 09:08 09/09/17 09:08 09/09/17 09:08 09/09/17 09:08 09/09/17 09:08 Intake and Output: 09/09/17 09/09/17 06:59 18:59 Intake Total 240 Output Total 300 Balance -60 - Medications Medications: Current Medications Amlodipine Besylate (Norvasc) 5 mg PO DAILY [facility] Last Admin: 09/08/17 09:53 Dose: 5 mg Chlordiazepoxide (Librium) 5 mg PO Q12 [facility] Stop: 09/10/17 22:01 Last Admin: 09/08/17 21:40 Dose: 5 mg Insulin Human Regular (Novolin R) 0 unit SC ACHS [facility] PRN Reason: Protocol Last Admin: 09/09/17 07:55 Dose: 1 unit Metformin HCl (Glucophage) 500 mg PO BID [facility] Metoprolol Succinate (Toprol Xl) 50 mg PO BID [facility] Last Admin: 09/08/17 17:43 Dose: 50 mg Multivitamins (Hexavitamin) 1 tab PO DAILY [facility] Last Admin: 09/08/17 09:49 Dose: 1 tab Pantoprazole Sodium (Protonix Ec Tab) 40 mg PO DAILY [facility] Last Admin: 09/08/17 09:49 Dose: 40 mg Phenytoin (Dilantin) 100 mg PO TID [facility] Last Admin: 09/08/17 17:43 Dose: 100 mg Rosuvastatin Calcium (Crestor) 2.5 mg PO HS [facility] Last Admin: 09/08/17 21:39 Dose: 2.5 mg Sitagliptin Phosphate (Januvia) 50 mg PO DAILY [facility] Tacrolimus (Prograf Cap) 1 mg PO DAILY [facility] Last Admin: 09/08/17 09:50 Dose: 1 mg Thiamine HCl (Vitamin B1 Tab) 100 mg PO DAILY [facility] Last Admin: 09/08/17 09:49 Dose: 100 mg - Labs Labs: 09/09/17 07:57 09/09/17 07:57 PT 11.6 SECONDS (9.7-12.2) 09/06/17 06:16 INR 1.0 09/06/17 06:16 APTT 19 SECONDS (21-34) L D 09/06/17 06:16 - Constitutional Appears: No Acute Distress - Head Exam Head Exam: ATRAUMATIC, NORMOCEPHALIC - Eye Exam Eye Exam: EOMI - Neck Exam Neck Exam: absent: Lymphadenopathy, Thyromegaly - Respiratory Exam Respiratory Exam: NORMAL BREATHING PATTERN. absent: Rales, Rhonchi, Wheezes - Cardiovascular Exam Cardiovascular Exam: REGULAR RHYTHM, +S1, +S2. absent: Gallop, Rubs, Murmur - GI/Abdominal Exam GI & Abdominal Exam: Soft, Normal Bowel Sounds. absent: Tenderness, Mass, Organomegaly - Rectal Exam Rectal Exam: Deferred - Extremities Exam Extremities Exam: absent: Calf Tenderness, Pedal Edema Assessment and Plan (1) Alcohol intoxication Assessment & Plan: Patient is asymptomatic and LFts are normal. Continue present management. Status: Acute (2) S/P liver transplant Assessment & Plan: Patient is stable status post liver transplant. Continue present management. Status: Chronic
[2017-09-09] MEDS: Multiple Vitamins Tab PO SCH (10:33)
[2017-09-09] MEDS: Pantoprazole 40 mg EC Tab PO SCH (10:33)
[2017-09-09] MEDS: Metoprolol Succinate 50 mg XL Tab PO SCH ×2 (10:33→17:37)
[2017-09-09] MEDS: Phenytoin 100 mg/4 ml Oral Susp UD PO SCH ×3 (10:34→17:37)
[2017-09-09] MEDS ORDERED: Potassium Phosphate 15 MMOLE in Dextrose 5% In Water 250 ML IVPB ONE (10:37)
--- NOTE | 2017-09-09 10:37 | CP.PCM.PN ---
Subjective - Date & Time of Evaluation Date of Evaluation: 09/09/17 Time of Evaluation: 10:35 - Subjective Subjective: And is awake and responding Not in any distress. No headache. No nausea vomiting. Patient was seen by GI this morning. He had a CT of the head this morning, the pending results. Patient is still having unsteady gait. Physical therapy will not be starting it. No chest pain. Vital signs reviewed No neck vein distention noted Chest good air entry bilaterally, no wheezing or rales noted CVS regular heart sound, no murmur noted Abdomen soft, nontender. Extremities no pedal edema [employer] alert awake oriented -3, no functional neurological deficit Patient's labs reviewed CT of the chest is seen by me. The recess. The CT scan pending, but no acute new changes noted Assessment and recommendation: 67-year-old male with a history of liver disease, status post liver transplant, hypertension. Patient is also alcoholism, currently had a recurrent falls following the alcoholism overdose. Patient had a subarachnoid hemorrhage traumatic most likely stable at this time. Continue to monitor the neuro status. Physical therapy will follow the patient Objective - Vital Signs/Intake and Output Vital Signs (last 24 hours): Temp Pulse Resp BP Pulse Ox 98.8 F 73 20 144/78 97 09/09/17 09:08 09/09/17 09:08 09/09/17 09:08 09/09/17 09:08 09/09/17 09:08 Intake and Output: 09/09/17 09/09/17 06:59 18:59 Intake Total 240 Output Total 300 Balance -60 - Medications Medications: Current Medications Amlodipine Besylate (Norvasc) 5 mg PO DAILY [facility] Last Admin: 09/08/17 09:53 Dose: 5 mg Chlordiazepoxide (Librium) 5 mg PO Q12 [facility] Stop: 09/10/17 22:01 Last Admin: 09/08/17 21:40 Dose: 5 mg Insulin Human Regular (Novolin R) 0 unit SC ACHS [facility] PRN Reason: Protocol Last Admin: 09/09/17 07:55 Dose: 1 unit Metformin HCl (Glucophage) 500 mg PO BID [facility] Metoprolol Succinate (Toprol Xl) 50 mg PO BID [facility] Last Admin: 09/08/17 17:43 Dose: 50 mg Multivitamins (Hexavitamin) 1 tab PO DAILY [facility] Last Admin: 09/08/17 09:49 Dose: 1 tab Pantoprazole Sodium (Protonix Ec Tab) 40 mg PO DAILY [facility] Last Admin: 09/08/17 09:49 Dose: 40 mg Phenytoin (Dilantin) 100 mg PO TID [facility] Last Admin: 09/08/17 17:43 Dose: 100 mg Rosuvastatin Calcium (Crestor) 2.5 mg PO HS [facility] Last Admin: 09/08/17 21:39 Dose: 2.5 mg Sitagliptin Phosphate (Januvia) 50 mg PO DAILY [facility] Tacrolimus (Prograf Cap) 1 mg PO DAILY [facility] Last Admin: 09/08/17 09:50 Dose: 1 mg Thiamine HCl (Vitamin B1 Tab) 100 mg PO DAILY [facility] Last Admin: 09/08/17 09:49 Dose: 100 mg - Labs Labs: 09/09/17 07:57 09/09/17 07:57 PT 11.6 SECONDS (9.7-12.2) 09/06/17 06:16 INR 1.0 09/06/17 06:16 APTT 19 SECONDS (21-34) L D 09/06/17 06:16 Assessment and Plan (1) Alcohol intoxication Status: Acute (2) Subarachnoid hemorrhage Status: Acute (3) S/P liver transplant Status: Chronic
--- NOTE | 2017-09-09 11:19 | CT ---
PROCEDURE: CT HEAD WITHOUT CONTRAST. HISTORY: FOLLOW UP FOR SAH COMPARISON: Head CT 05/06/2017. Brain MRI 09/07/2017. TECHNIQUE: Axial computed tomography images were obtained through the head/brain without intravenous contrast. Radiation dose: Total exam DLP = 865.35 mGy-cm. This CT exam was performed using one or more of the following dose reduction techniques: Automated exposure control, adjustment of the mA and/or kV according to patient size, and/or use of iterative reconstruction technique. FINDINGS: HEMORRHAGE: Stable subarachnoid hemorrhage is diminished in density at the left frontal, parietal and temporal lobes. New subarachnoid hemorrhage appears to present minimally at the superior right temporal lobe which is not clearly identified on the prior MRI of this location or CT noted above. Suprasellar cistern hemorrhage is significantly reduced in the interval. Posterior fossa contents remain clear of hemorrhage. BRAIN: Diffuse cerebral atrophy is reiterated primarily throughout the cerebrum with the brainstem and cerebellum unremarkable grossly. VENTRICLES: Unremarkable. No hydrocephalus. CALVARIUM: Unremarkable. PARANASAL SINUSES: Unremarkable as visualized. No significant inflammatory changes. MASTOID AIR CELLS: Unremarkable as visualized. No inflammatory changes. OTHER FINDINGS: None. IMPRESSION: Diminishing subarachnoid hemorrhage is appreciated at the suprasellar cistern and left frontotemporal sulci and minimally at the left parietal sulci. Trace new hemorrhage is appreciated at the superior portion right temporal subarachnoid space. The remainder the examination is unremarkable. Continued clinical and CT monitoring are advised. Findings discussed with 09/09/2017 11:12 a.m..
[2017-09-09] MEDS: Rosuvastatin Calcium 2.5 mg Tab PO SCH (21:14)
[2017-09-10] MEDS: (Novolin R) Insulin Human Regular 100 units/ml vial SC SCH ×4 (07:29→22:24)
--- NOTE | 2017-09-10 08:13 | PN ---
DATE: 09/10/2017 NEUROLOGICAL PROBLEM: Posttraumatic subarachnoid hemorrhage. PHYSICAL EXAMINATION: VITAL SIGNS: Blood pressure 131/64, mean arterial pressure of 86, respiratory rate 18, temperature 98.3, pulse rate 76, regular. The patient's examinations, which is unchanged compared with my previous examination. No neck stiffness. No visual disturbances. LABORATORY DATA: The patient did have MRI of the brain, which showed subarachnoid hemorrhage and MR angiogram does not show any aneurysm. The patient did have CT of the head followup yesterday because of his posttraumatic subarachnoid hemorrhage, which showed new right temporal subarachnoid hemorrhage, which is somewhat new compared with my previous examination noted. ASSESSMENT AND PLAN: The patient clinically is stable. No seizures. The patient has been taking medication prophylactically for his seizures. His recurrent subarachnoid hemorrhage, probably he might have coagulopathy related to his liver disease. Continue the present management, hydration, keep the mean arterial pressure around 90-100. The patient should get out of the bed and physical therapy should be started. The patient should be off for alcohol, which is extensively discussed with the patient. Gavino Feldman MD
[2017-09-10] MEDS: Metoprolol Succinate 50 mg XL Tab PO SCH ×2 (09:27→18:10)
[2017-09-10] MEDS: Phenytoin 100 mg/4 ml Oral Susp UD PO SCH ×3 (09:27→18:06)
[2017-09-10] MEDS: Pantoprazole 40 mg EC Tab PO SCH (09:27)
[2017-09-10] MEDS: Multiple Vitamins Tab PO SCH (09:27)
--- NOTE | 2017-09-10 10:39 | CP.PCM.PN ---
Subjective - Date & Time of Evaluation Date of Evaluation: 09/10/17 Time of Evaluation: 10:36 - Subjective Subjective: No pain, N/V, bleeding or h/a MRA negative for aneuysm CT repeat shows trace new SAH?? Objective - Vital Signs/Intake and Output Vital Signs (last 24 hours): Temp Pulse Resp BP Pulse Ox 98.9 F 74 20 143/79 95 09/10/17 08:05 09/10/17 08:05 09/10/17 08:05 09/10/17 08:05 09/10/17 08:05 Intake and Output: 09/10/17 09/10/17 06:59 18:59 Intake Total 360 Output Total 600 Balance -240 - Medications Medications: Current Medications Amlodipine Besylate (Norvasc) 5 mg PO DAILY [facility] Last Admin: 09/10/17 09:27 Dose: 5 mg Chlordiazepoxide (Librium) 5 mg PO Q12 [facility] Stop: 09/10/17 22:01 Last Admin: 09/10/17 09:27 Dose: 5 mg Insulin Human Regular (Novolin R) 0 unit SC [facility] PRN Reason: Protocol Last Admin: 09/10/17 07:29 Dose: Not Given Metformin HCl (Glucophage) 500 mg PO BID [facility] Metoprolol Succinate (Toprol Xl) 50 mg PO BID [facility] Last Admin: 09/10/17 09:27 Dose: 50 mg Multivitamins (Hexavitamin) 1 tab PO DAILY [facility] Last Admin: 09/10/17 09:27 Dose: 1 tab Pantoprazole Sodium (Protonix Ec Tab) 40 mg PO DAILY [facility] Last Admin: 09/10/17 09:27 Dose: 40 mg Phenytoin (Dilantin) 100 mg PO TID [facility] Last Admin: 09/10/17 09:27 Dose: 100 mg Rosuvastatin Calcium (Crestor) 2.5 mg PO HS [facility] Last Admin: 09/09/17 21:14 Dose: 2.5 mg Sitagliptin Phosphate (Januvia) 50 mg PO DAILY [facility] Last Admin: 09/10/17 09:27 Dose: 50 mg Tacrolimus (Prograf Cap) 1 mg PO DAILY [facility] Last Admin: 09/10/17 09:27 Dose: 1 mg Thiamine HCl (Vitamin B1 Tab) 100 mg PO DAILY [facility] Last Admin: 09/10/17 09:27 Dose: 100 mg - Labs Labs: 09/09/17 07:57 09/09/17 07:57 PT 11.6 SECONDS (9.7-12.2) 09/06/17 06:16 INR 1.0 09/06/17 06:16 APTT 19 SECONDS (21-34) L D 09/06/17 06:16 - Constitutional Appears: No Acute Distress - Eye Exam Eye Exam: EOMI, PERRL - Respiratory Exam Respiratory Exam: Clear to Ausculation Bilateral - Cardiovascular Exam Cardiovascular Exam: REGULAR RHYTHM - GI/Abdominal Exam GI & Abdominal Exam: Soft, Normal Bowel Sounds. absent: Tenderness, Organomegaly - Extremities Exam Extremities Exam: Normal Inspection Assessment and Plan (1) S/P liver transplant Assessment & Plan: Stable on current immunosuppressive regimen Follow up with [facility] to be arranged after holidays Stable post transplant with normal hepatic function thus far. Status: Chronic (2) Hepatitis C carrier Status: Resolved (3) Alcohol intoxication Assessment & Plan: Clinically stable. Normal LFTs Alcohol counselling and out patient AA program will be needed to assist compliance. Patient has been good with alcohol avoidance in the past and likely needs support for emotional/family issues. Status: Acute (4) Subarachnoid hemorrhage Assessment & Plan: Neuro follow up concerning findings of new exam with possible trace new bleed. Status: Acute (5) H/O malignant hepatoma Status: Resolved
--- NOTE | 2017-09-10 10:49 | EEG ---
DATE: 09/06/2017 This is a 16-channel electroencephalogram of awake and drowsy adult. During the study, photic stimulation was performed, hyperventilation was not performed. The resting electroencephalogram consists of diffuse moderate voltage 4 to 6 Hz delta mixed with theta activity seen diffusely in the bilateral cortical leads. Intermittent movement artifact had muscle artifact contaminant with the background rhythm. The photic stimulation did not evoke driving response noted at 2 to 20 Hz. IMPRESSION: This is an abnormal electroencephalogram because of persistent slowing throughout the record suggestive of bilateral cerebral dysfunction. This is probably secondary to metabolic, vascular, or degenerative process. Please correlate the findings with the neurological and radiological studies. Gavino Feldman MD
--- NOTE | 2017-09-10 20:29 | CP.PCM.PN ---
Subjective - Date & Time of Evaluation Date of Evaluation: 09/10/17 Time of Evaluation: 20:29 Objective - Vital Signs/Intake and Output Vital Signs (last 24 hours): Temp Pulse Resp BP Pulse Ox 98.8 F 80 18 150/80 95 09/10/17 15:22 09/10/17 18:45 09/10/17 15:22 09/10/17 18:15 09/10/17 15:22 - Medications Medications: Current Medications Amlodipine Besylate (Norvasc) 5 mg PO DAILY [facility] Last Admin: 09/10/17 09:27 Dose: 5 mg Chlordiazepoxide (Librium) 5 mg PO Q12 [facility] Stop: 09/10/17 22:01 Last Admin: 09/10/17 09:27 Dose: 5 mg Insulin Human Regular (Novolin R) 0 unit SC [facility] PRN Reason: Protocol Last Admin: 09/10/17 18:06 Dose: 1 unit Metformin HCl (Glucophage) 500 mg PO BID [facility] Metoprolol Succinate (Toprol Xl) 50 mg PO BID [facility] Last Admin: 09/10/17 18:10 Dose: 50 mg Multivitamins (Hexavitamin) 1 tab PO DAILY [facility] Last Admin: 09/10/17 09:27 Dose: 1 tab Pantoprazole Sodium (Protonix Ec Tab) 40 mg PO DAILY [facility] Last Admin: 09/10/17 09:27 Dose: 40 mg Phenytoin (Dilantin) 100 mg PO TID [facility] Last Admin: 09/10/17 18:06 Dose: 100 mg Rosuvastatin Calcium (Crestor) 2.5 mg PO HS [facility] Last Admin: 09/09/17 21:14 Dose: 2.5 mg Sitagliptin Phosphate (Januvia) 50 mg PO DAILY [facility] Last Admin: 09/10/17 09:27 Dose: 50 mg Tacrolimus (Prograf Cap) 1 mg PO DAILY [facility] Last Admin: 09/10/17 09:27 Dose: 1 mg Thiamine HCl (Vitamin B1 Tab) 100 mg PO DAILY [facility] Last Admin: 09/10/17 09:27 Dose: 100 mg - Labs Labs: 09/09/17 07:57 09/09/17 07:57 PT 11.7 SECONDS (9.7-12.2) 09/10/17 11:40 INR 1.0 09/10/17 11:40 APTT 27 SECONDS (21-34) 09/10/17 11:40 Assessment and Plan (1) Alcohol intoxication Status: Acute (2) Subarachnoid hemorrhage Status: Acute (3) S/P liver transplant Status: Chronic
[2017-09-10] MEDS: Rosuvastatin Calcium 2.5 mg Tab PO SCH (22:23)
[2017-09-11 01:34] VITALS: RESP 20
[2017-09-11] MEDS: (Novolin R) Insulin Human Regular 100 units/ml vial SC SCH ×4 (08:16→21:49)
--- NOTE | 2017-09-11 10:06 | CP.PCM.PN ---
Subjective - Date & Time of Evaluation Date of Evaluation: 09/11/17 Time of Evaluation: 10:04 - Subjective Subjective: No new c/o, still somewhat dizzy and unsteady gait Objective - Vital Signs/Intake and Output Vital Signs (last 24 hours): Temp Pulse Resp BP Pulse Ox 98.3 F 79 20 136/78 93 L 09/11/17 07:50 09/11/17 07:50 09/11/17 07:50 09/11/17 07:50 09/11/17 07:50 Intake and Output: 09/11/17 09/11/17 06:59 18:59 Intake Total 400 Output Total 800 Balance -400 - Medications Medications: Current Medications Amlodipine Besylate (Norvasc) 5 mg PO DAILY [facility] Last Admin: 09/10/17 09:27 Dose: 5 mg Insulin Human Regular (Novolin R) [address] [facility] PRN Reason: Protocol Last Admin: 09/11/17 08:16 Dose: 1 unit Metformin HCl (Glucophage) 500 mg PO BID [facility] Metoprolol Succinate (Toprol Xl) 50 mg PO BID [facility] Last Admin: 09/10/17 18:10 Dose: 50 mg Multivitamins (Hexavitamin) 1 tab PO DAILY [facility] Last Admin: 09/10/17 09:27 Dose: 1 tab Pantoprazole Sodium (Protonix Ec Tab) 40 mg PO DAILY [facility] Last Admin: 09/10/17 09:27 Dose: 40 mg Phenytoin (Dilantin) 100 mg PO TID [facility] Last Admin: 09/10/17 18:06 Dose: 100 mg Rosuvastatin Calcium (Crestor) 2.5 mg PO HS [facility] Last Admin: 09/10/17 22:23 Dose: 2.5 mg Sitagliptin Phosphate (Januvia) 50 mg PO DAILY [facility] Last Admin: 09/10/17 09:27 Dose: 50 mg Tacrolimus (Prograf Cap) 1 mg PO DAILY [facility] Last Admin: 09/10/17 09:27 Dose: 1 mg Thiamine HCl (Vitamin B1 Tab) 100 mg PO DAILY [facility] Last Admin: 09/10/17 09:27 Dose: 100 mg - Labs Labs: 09/09/17 07:57 09/09/17 07:57 PT 11.7 SECONDS (9.7-12.2) 09/10/17 11:40 INR 1.0 09/10/17 11:40 APTT 27 SECONDS (21-34) 09/10/17 11:40 - Constitutional Appears: No Acute Distress - Eye Exam Eye Exam: EOMI, PERRL - Respiratory Exam Respiratory Exam: NORMAL BREATHING PATTERN - Cardiovascular Exam Cardiovascular Exam: REGULAR RHYTHM - GI/Abdominal Exam GI & Abdominal Exam: Soft, Normal Bowel Sounds. absent: Tenderness, Mass, Organomegaly, Rebound - Extremities Exam Extremities Exam: Normal Inspection Assessment and Plan (1) S/P liver transplant Assessment & Plan: Clinically stable hepatic function Continue Prograff at 1mg bid, awaiting level ordered on admission. Status: Chronic (2) Hepatitis C carrier Status: Resolved (3) Alcohol intoxication Assessment & Plan: For alcohol counseling follow up upon discharge. Status: Acute (4) Subarachnoid hemorrhage Assessment & Plan: As per Neuro and physical therapy. Status: Acute (5) H/O malignant hepatoma Status: Resolved
[2017-09-11] MEDS: Multiple Vitamins Tab PO SCH (10:18)
[2017-09-11] MEDS: Pantoprazole 40 mg EC Tab PO SCH (10:18)
[2017-09-11] MEDS: Metoprolol Succinate 50 mg XL Tab PO SCH ×2 (10:19→17:30)
[2017-09-11] MEDS: Phenytoin 100 mg/4 ml Oral Susp UD PO SCH ×3 (10:19→17:30)
[2017-09-11] MEDS: Rosuvastatin Calcium 2.5 mg Tab PO SCH (21:48)
--- NOTE | 2017-09-11 23:29 | CP.PCM.PN ---
Subjective - Date & Time of Evaluation Date of Evaluation: 09/11/17 Time of Evaluation: 23:28 - Subjective Subjective: Patient is currently having unsteady gait This patient is doing well. No chest pain or soreness of breath Vital signs stable. Vital signs reviewed No neck vein distention noted Chest good air entry bilaterally, no wheezing or rales noted CVS regular heart sound, no murmur noted Abdomen soft, nontender. Extremities no pedal edema GOLD BLOWER alert awake oriented -3, no functional neurological deficit Assessment and recommendation: 67-year-old male with history of liver transplant. Alcoholism. Admitted with subarachnoid hemorrhage traumatic. Stable. Possible discharge to rehabilitation Objective - Vital Signs/Intake and Output Vital Signs (last 24 hours): Temp Pulse Resp BP Pulse Ox 98.8 F 78 20 134/73 94 L 09/11/17 16:00 09/11/17 16:00 09/11/17 16:00 09/11/17 16:00 09/11/17 16:00 - Medications Medications: Current Medications Amlodipine Besylate (Norvasc) 5 mg PO DAILY [facility] Last Admin: 09/11/17 10:18 Dose: 5 mg Insulin Human Regular (Novolin R) 0 unit SC [facility] PRN Reason: Protocol Last Admin: 09/11/17 21:49 Dose: Not Given Metformin HCl (Glucophage) 500 mg PO BID [facility] Metoprolol Succinate (Toprol Xl) 50 mg PO BID [facility] Last Admin: 09/11/17 17:30 Dose: 50 mg Multivitamins (Hexavitamin) 1 tab PO DAILY [facility] Last Admin: 09/11/17 10:18 Dose: 1 tab Pantoprazole Sodium (Protonix Ec Tab) 40 mg PO DAILY [facility] Last Admin: 09/11/17 10:18 Dose: 40 mg Phenytoin (Dilantin) 100 mg PO TID [facility] Last Admin: 09/11/17 17:30 Dose: 100 mg Rosuvastatin Calcium (Crestor) 2.5 mg PO HS [facility] Last Admin: 09/11/17 21:48 Dose: 2.5 mg Sitagliptin Phosphate (Januvia) 50 mg PO DAILY [facility] Last Admin: 09/11/17 10:18 Dose: 50 mg Tacrolimus (Prograf Cap) 1 mg PO DAILY [facility] Last Admin: 09/11/17 10:19 Dose: 1 mg Thiamine HCl (Vitamin B1 Tab) 100 mg PO DAILY [facility] Last Admin: 09/11/17 10:26 Dose: 100 mg - Labs Labs: 09/09/17 07:57 09/09/17 07:57 PT 11.7 SECONDS (9.7-12.2) 09/10/17 11:40 INR 1.0 09/10/17 11:40 APTT 27 SECONDS (21-34) 09/10/17 11:40 Assessment and Plan (1) Alcohol intoxication Status: Acute (2) Subarachnoid hemorrhage Status: Acute (3) S/P liver transplant Status: Chronic
[2017-09-12 06:34] LABS: BASO # 0.1 K/uL (0.0-0.2); BASO % 1.3 % (0.0-2.0); EOS # 0.2 K/uL (0.0-0.7); EOS % 3.1 % (0.0-4.0); HEMATOCRIT 40.7 % (35.0-51.0); LYMPH # 1.1 K/uL (1.0-4.3); LYMPH % 16.4 % (20.0-40.0); MEAN CELL VOLUME 97.4 fL (80.0-94.0); MEAN CORPUSCULAR HEMOGLOBIN 34.2 pg (27.0-31.0); MEAN CORPUSCULAR HGB CONC 35.1 g/dL (33.0-37.0); MEAN PLATELET VOLUME 8.5 fL (7.2-11.7); MONO # 0.9 K/uL (0.0-0.8); MONO % 13.6 % (0.0-10.0); RED CELL DISTRIBUTION WIDTH 12.5 % (11.5-14.5); WHITE BLOOD COUNT 6.5 K/uL (4.8-10.8)
[2017-09-12 07:04] LABS: ALB/GLOB RATIO 1.3 (1.0-2.1); ALKALINE PHOSPHATASE 79 U/L (38-126); ALT/SGPT 27 U/L (21-72); AST/SGOT 32 U/L (17-59); BILIRUBIN,TOTAL 0.7 mg/dL (0.2-1.3); BLOOD UREA NITROGEN 16 mg/dL (9-20); CARBON DIOXIDE 27 mmol/L (22-30); CHLORIDE 95 mmol/L (98-107); GFR AFRICAN-AMERICAN > 60; GLUCOSE,RANDOM 143 mg/dL (75-110); POTASSIUM 4.4 mmol/L (3.6-5.2); SODIUM 129 mmol/L (132-148); TOTAL PROTEIN 6.5 g/dL (6.3-8.3)
[2017-09-12] MEDS: (Novolin R) Insulin Human Regular 100 units/ml vial SC SCH ×4 (08:07→22:00)
--- NOTE | 2017-09-12 09:34 | PN ---
DATE: 09/12/2017 TIME OF EVALUATION: 07:05 a.m. PHYSICAL EXAMINATION: VITAL SIGNS: Blood pressure 124/64, mean arterial pressure of 84, respiratory rate 18, temperature 99, pulse rate 72, regular. NEUROLOGIC: The patient is asymptomatic at present. No headache, no visual or bulbar dysfunction. No meningismus. The patient since he is admitted no further progression of his neuro status. LABORATORY DATA: The patient did have a CT of the head followup, which showed slight increases in subarachnoid hemorrhage in right cortical region to compare with the previous exam. ASSESSMENT AND PLAN: From neurologically, the patient is stable. Continue the present management and antiepileptic seizure for seizure prophylaxis. The patient agreed abstinence from alcohol. If medically stable, the patient can be discharged and should have followup visit with me as outpatient. Gavino Feldman MD
--- NOTE | 2017-09-12 10:29 | CP.PCM.PN ---
Subjective - Date & Time of Evaluation Date of Evaluation: 09/12/17 Time of Evaluation: 10:26 - Subjective Subjective: No new complaints. Doing well with PT. Reports no dizziness or unsteadiness of gait. Reports discharge today pending. Objective - Vital Signs/Intake and Output Vital Signs (last 24 hours): Temp Pulse Resp BP Pulse Ox 98.4 F 84 20 131/69 96 09/12/17 07:45 09/12/17 07:45 09/12/17 07:45 09/12/17 07:45 09/12/17 07:45 - Medications Medications: Current Medications Amlodipine Besylate (Norvasc) 5 mg PO DAILY [facility] Last Admin: 09/11/17 10:18 Dose: 5 mg Insulin Human Regular (Novolin R) 0 unit SC [facility] PRN Reason: Protocol Last Admin: 09/12/17 08:07 Dose: Not Given Metformin HCl (Glucophage) 500 mg PO BID [facility] Metoprolol Succinate (Toprol Xl) 50 mg PO BID [facility] Last Admin: 09/11/17 17:30 Dose: 50 mg Multivitamins (Hexavitamin) 1 tab PO DAILY [facility] Last Admin: 09/11/17 10:18 Dose: 1 tab Pantoprazole Sodium (Protonix Ec Tab) 40 mg PO DAILY [facility] Last Admin: 09/11/17 10:18 Dose: 40 mg Phenytoin (Dilantin) 100 mg PO TID [facility] Last Admin: 09/11/17 17:30 Dose: 100 mg Rosuvastatin Calcium (Crestor) 2.5 mg PO HS [facility] Last Admin: 09/11/17 21:48 Dose: 2.5 mg Sitagliptin Phosphate (Januvia) 50 mg PO DAILY [facility] Last Admin: 09/11/17 10:18 Dose: 50 mg Tacrolimus (Prograf Cap) 1 mg PO DAILY [facility] Last Admin: 09/11/17 10:19 Dose: 1 mg Thiamine HCl (Vitamin B1 Tab) 100 mg PO DAILY [facility] Last Admin: 09/11/17 10:26 Dose: 100 mg - Labs Labs: 09/12/17 06:26 09/12/17 06:26 PT 11.7 SECONDS (9.7-12.2) 09/10/17 11:40 INR 1.0 09/10/17 11:40 APTT 27 SECONDS (21-34) 09/10/17 11:40 - Constitutional Appears: No Acute Distress - Eye Exam Eye Exam: EOMI, PERRL - Respiratory Exam Respiratory Exam: Clear to Ausculation Bilateral, NORMAL BREATHING PATTERN - Cardiovascular Exam Cardiovascular Exam: REGULAR RHYTHM - GI/Abdominal Exam GI & Abdominal Exam: Soft, Normal Bowel Sounds. absent: Tenderness, Mass, Organomegaly, Rebound - Extremities Exam Extremities Exam: Normal Inspection - Neurological Exam Neurological Exam: Alert, Awake, Oriented x3 Assessment and Plan (1) S/P liver transplant Assessment & Plan: Continue current Rx on discharge Will contact [facility] regarding patients admission status Outpatient follow up with me in 2-3 weeks as previously scheduled. Status: Chronic (2) Hepatitis C carrier Status: Resolved (3) Alcohol intoxication Assessment & Plan: For alcohol counselling upon discharge. Has been compliant in the past. Status: Acute (4) Subarachnoid hemorrhage Assessment & Plan: Follow up with Neuro. ?need for seizure prophylaxis upon discharge to be determined? Need for repeat CT in one month? Status: Acute (5) H/O malignant hepatoma Assessment & Plan: Follow up at [facility]. Repeat CT as per protocol. Stable at present. Status: Resolved
[2017-09-12] MEDS: Multiple Vitamins Tab PO SCH (10:37)
[2017-09-12] MEDS: Pantoprazole 40 mg EC Tab PO SCH (10:37)
[2017-09-12] MEDS: Phenytoin 100 mg/4 ml Oral Susp UD PO SCH ×3 (10:38→18:29)
[2017-09-12] MEDS: Metoprolol Succinate 50 mg XL Tab PO SCH ×2 (10:38→21:23)
[2017-09-12] MEDS: Rosuvastatin Calcium 2.5 mg Tab PO SCH (21:23)
[2017-09-13] MEDS: (Novolin R) Insulin Human Regular 100 units/ml vial SC SCH ×2 (08:22→11:27)
[2017-09-13] MEDS: Metoprolol Succinate 50 mg XL Tab PO SCH (10:37)
[2017-09-13] MEDS: Multiple Vitamins Tab PO SCH (10:37)
[2017-09-13] MEDS: Pantoprazole 40 mg EC Tab PO SCH (10:37)
[2017-09-13] MEDS: Phenytoin 100 mg/4 ml Oral Susp UD PO SCH ×2 (10:38→14:11)
[2017-09-13 11:26] VITALS: O2SAT 95
--- NOTE | 2017-09-13 11:36 | PN ---
DATE: 09/13/2017 TIME OF EVALUATION: 07:05 a.m. NEUROLOGICAL PROBLEM: Posttraumatic subarachnoid hemorrhage. PHYSICAL EXAMINATION: VITAL SIGNS: Blood pressure 126/61, mean arterial pressure of 82, respiratory rate 16, and temperature 98.2. GENERAL: The patient is asymptomatic. Examination which is unchanged compared with my previous examination. The patient did not have any seizures. No related neurological symptoms from his subarachnoid hemorrhage. His workup all completed from neurological point of view. Continue the recommended medication for his subarachnoid hemorrhage. If medically stable, the patient can be discharged and he should have followup visit as outpatient. Gavino Feldman MD
--- NOTE | 2017-09-13 14:25 | CP.PCM.PN ---
Objective - Vital Signs/Intake and Output Vital Signs (last 24 hours): Temp Pulse Resp BP Pulse Ox 98.4 F 76 20 132/74 95 09/13/17 08:00 09/13/17 10:34 09/13/17 08:00 09/13/17 10:34 09/13/17 08:00 - Medications Medications: Current Medications Amlodipine Besylate (Norvasc) 5 mg PO DAILY [facility] Last Admin: 09/13/17 10:37 Dose: 5 mg Insulin Human Regular (Novolin R) 0 unit SC [facility] PRN Reason: Protocol Last Admin: 09/13/17 11:27 Dose: Not Given Metformin HCl (Glucophage) 500 mg PO BID [facility] Metoprolol Succinate (Toprol Xl) 50 mg PO BID [facility] Last Admin: 09/13/17 10:37 Dose: 50 mg Multivitamins (Hexavitamin) 1 tab PO DAILY [facility] Last Admin: 09/13/17 10:37 Dose: 1 tab Pantoprazole Sodium (Protonix Ec Tab) 40 mg PO DAILY [facility] Last Admin: 09/13/17 10:37 Dose: 40 mg Phenytoin (Dilantin) 100 mg PO TID [facility] Last Admin: 09/13/17 14:11 Dose: 100 mg Rosuvastatin Calcium (Crestor) 2.5 mg PO HS [facility] Last Admin: 09/12/17 21:23 Dose: 2.5 mg Sitagliptin Phosphate (Januvia) 50 mg PO DAILY [facility] Last Admin: 09/13/17 10:37 Dose: 50 mg Tacrolimus (Prograf Cap) 1 mg PO DAILY [facility] Last Admin: 09/13/17 10:37 Dose: 1 mg Thiamine HCl (Vitamin B1 Tab) 100 mg PO DAILY [facility] Last Admin: 09/13/17 10:37 Dose: 100 mg - Labs Labs: 09/12/17 06:26 09/12/17 06:26 PT 11.7 SECONDS (9.7-12.2) 09/10/17 11:40 INR 1.0 09/10/17 11:40 APTT 27 SECONDS (21-34) 09/10/17 11:40
[2017-09-13 15:22] VITALS: BP 147/65; PULSE 74; TEMP 98.2
== END 2017-09-13 15:39 | disposition home or self-care (01) | DRG 896 ==
LOC: C.ER 17:14 → C.9I 22:33 → C.6T 09-08 12:41
PROVIDERS: ADMIT Internal Medicine; ATTEND Internal Medicine
DX: F10.229 Alcohol dependence with intoxication, unspecified (principal); S06.6X9A Traumatic subarachnoid hemorrhage with loss of consciousness of unspecified duration, initial encounter; E11.40 Type 2 diabetes mellitus with diabetic neuropathy, unspecified; Z94.4 Liver transplant status; F10.239 Alcohol dependence with withdrawal, unspecified; Z85.05 Personal history of malignant neoplasm of liver; I10 Essential (primary) hypertension; E78.00 Pure hypercholesterolemia, unspecified; F17.210 Nicotine dependence, cigarettes, uncomplicated; W19.XXXA Unspecified fall, initial encounter; Z79.4 Long term (current) use of insulin